=== PATIENT | male | born 1990 | race Caucasian/White ===

== ENCOUNTER 2017-05-22 13:17 | Emergency (ER) | payer OTHER ==
--- NOTE | 2017-05-22 13:24 | ED ---
ENT HPI - General Stated complaint: dental pain Time Seen by Provider: 05/22/17 13:18 Source: patient, RN notes reviewed Mode of arrival: ambulatory Limitations: no limitations - History of Present Illness Initial comments: 27-year-old male presents emergency Department chief complaint of dental pain. Patient states his tooth broke off a week or so ago. Patient states he is tired to go to [facility], dental clinic in [facility] and states that he does not have the money for it. Patient states that he's had increasing pain. Denies fevers or chills. He's had mild swelling. He should have some Orajel and other [id number] products with some relief. - Related Data Home Medications Medication Instructions Recorded Confirmed Hydrocodone/Acetaminophen [[place] 1 each PO Q6HR PRN 06/10/14 07/13/16 5-325] clonazePAM [KlonoPIN] 0.5 mg PO TID 06/10/14 07/13/16 Previous Rx's Medication Instructions Recorded HYDROcodone/APAP 5-325MG [[place] 1 tab PO Q6HR #12 tab 07/13/16 5-325] Acetaminophen-Codeine 300-30mg 1 tab PO Q4H PRN #20 tablet 05/22/17 [Tylenol #3] Ibuprofen [Motrin] 600 mg PO Q8HR PRN #30 tab 05/22/17 Penicillin V Potassium [Pen Vee K] 500 mg PO QID #40 tab 05/22/17 Allergies Allergy/AdvReac Type Severity Reaction Status Date / Time venom-honey bee Allergy Unknown Verified 07/13/16 13:25 [bee venom (honey bee)] Review of Systems ROS Statement: Those systems with pertinent positive or pertinent negative responses have been documented in the HPI. ROS Other: All systems not noted in ROS Statement are negative. Past Medical History Past Medical History: Asthma Additional Past Medical History / Comment(s): BACK PAIN History of Any Multi-Drug Resistant Organisms: None Reported Past Surgical History: Ear Surgery, Tonsillectomy Additional Past Surgical History / Comment(s): NASAL SURGERY Past Psychological History: ADD/ADHD, Bipolar, Schizoaffective Disorder, Schizophrenia Smoking Status: Current every day smoker Past Alcohol Use History: Occasional Past Drug Use History: None Reported General Exam General appearance: alert, in no apparent distress Head exam: Present: atraumatic, normocephalic, normal inspection Eye exam: Present: normal appearance, PERRL, EOMI. Absent: scleral icterus, conjunctival injection, periorbital swelling ENT exam: Present: mucous membranes moist, TM's normal bilaterally, normal external ear exam. Absent: normal oropharynx (Dental fracture noted #18) Neck exam: Present: normal inspection, full ROM. Absent: tenderness, meningismus, lymphadenopathy Respiratory exam: Present: normal lung sounds bilaterally. Absent: respiratory distress, wheezes, rales, rhonchi, stridor Cardiovascular Exam: Present: regular rate, normal rhythm, normal heart sounds. Absent: systolic murmur, diastolic murmur, rubs, gallop, clicks GI/Abdominal exam: Present: soft, normal bowel sounds. Absent: distended, tenderness, guarding, rebound, rigid Skin exam: Present: warm, dry, intact, normal color. Absent: rash Medical Decision Making - Medical Decision Making 27-year-old male presented for lower dental pain. Patient has a dental fracture. Patient still has his wasn't his and he is advised follow-up with oral surgeon, dentist. He states he has he was also advised to follow-up with [facility] dental clinic. Return parameters were discussed. Disposition Clinical Impression: Tooth fracture, Pain, dental Disposition: HOME SELF-CARE Condition: Stable Instructions: Toothache (ED) Additional Instructions: Please return to the Emergency Department if symptoms worsen or any other concerns. Prescriptions: Acetaminophen-Codeine 300-30mg [Tylenol #3] 1 tab PO Q4H PRN #20 tablet PRN Reason: pain Ibuprofen [Motrin] 600 mg PO Q8HR PRN #30 tab PRN Reason: Pain Penicillin V Potassium [Pen Vee K] 500 mg PO QID #40 tab Referrals: None,Stated [Primary Care Provider] - 1-2 days Time of Disposition: 13:23
[2017-05-22 13:25] VITALS: BP 125/62; PULSE 77; RESP 18; TEMP 98.2
== END 2017-05-22 13:37 | disposition home or self-care (01) ==
LOC: EC 13:17
DX: S02.5XXA Fracture of tooth (traumatic), initial encounter for closed fracture (principal); F17.200 Nicotine dependence, unspecified, uncomplicated; Z79.899 Other long term (current) drug therapy; Z91.030 Bee allergy status
CPT/HCPCS: 99282

== ENCOUNTER 2018-12-31 15:50 | Emergency (ER) | payer OTHER ==
[2018-12-31 15:57] VITALS: RESP 16
--- NOTE | 2018-12-31 16:57 | XR ---
EXAMINATION TYPE: XR chest 2V DATE OF EXAM: 12/31/2018 COMPARISON: 04/10/2009 HISTORY: Chest pain TECHNIQUE: Frontal and lateral views of the chest are obtained. FINDINGS: Heart and mediastinum are normal. Lungs are clear. Diaphragm is normal. Bony thorax is nor mal. IMPRESSION: Normal chest. No change.
--- NOTE | 2018-12-31 16:59 | XR ---
EXAMINATION TYPE: XR wrist complete RT DATE OF EXAM: 12/31/2018 COMPARISON: NONE HISTORY: Wrist pain TECHNIQUE: 4 views FINDINGS: I see no fracture nor dislocation. Joint spaces are fairly normal. There is rounded bony de nsity at the radial styloid process that could relate to an old injury. This could also be accessory ossicle. There is deformity of the fifth metacarpal related to old healed fracture. IMPRESSION: No acute abnormality of the right wrist.
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
[2018-12-31 17:28] VITALS: BP 130/74; PULSE 80; TEMP 98
== END 2018-12-31 17:27 | disposition other institution (70) ==
LOC: EC 15:50
DX: S09.90XA Unspecified injury of head, initial encounter (principal); S20.219A Contusion of unspecified front wall of thorax, initial encounter; S60.211A Contusion of right wrist, initial encounter; F17.200 Nicotine dependence, unspecified, uncomplicated; Z79.899 Other long term (current) drug therapy; Z91.030 Bee allergy status; V23.4XXA Motorcycle driver injured in collision with car, pick-up truck or van in traffic accident, initial encounter; Y92.410 Unspecified street and highway as the place of occurrence of the external cause
CPT/HCPCS: 70450; 71046; 72125; 99285

== ENCOUNTER 2019-06-28 13:52 | Emergency (ER) | payer BC, OTHER ==
[2019-06-28 14:00] VITALS: BP 134/83; PULSE 91; RESP 18; TEMP 98.2
[2019-06-28 14:39] LABS: Appearance,Urine Clear (Clear); Bilirubin,Urine Negative (Negative); Blood,Urine Negative (Negative); Color,Urine Yellow; Glucose,Urine (UA) Negative (Negative); Ketones,Urine Negative (Negative); Leukocyte Esterase,Urine Negative (Negative); Nitrite,Urine Negative (Negative); Protein,Urine Trace (Negative); Specific Gravity,Urine 1.027 (1.001-1.035); Urobilinogen,Urine <2.0 mg/dL (<2.0)
--- NOTE | 2019-06-28 14:39 | ED ---
Male Urogenital HPI - General Chief complaint: Urogenital Stated complaint: Male & abcess tooth Time Seen by Provider: 06/28/19 14:05 Source: patient, RN notes reviewed Mode of arrival: ambulatory Limitations: no limitations - History of Present Illness Initial comments: 29-year-old male presents emergency Department with chief complaint of possible herpes outbreak, dental abscess. Patient states he is impacted lower left wisdom tooth. Patient states is increasing pain last couple days. Concerned about possible infection. Patient also states that he woke up with a foul order from his general region. He states that there is no open lesions or sores. He states he was told that he had herpes and if he ever had any symptoms that he should be examined. Patient reports of fevers chills denies any dysuria or hematuria. - Related Data Home Medications Medication Instructions Recorded Confirmed Omeprazole 20 mg PO DAILY 12/31/18 12/31/18 Previous Rx's Medication Instructions Recorded Ibuprofen [Motrin] 600 mg PO Q8HR PRN #30 tab 06/28/19 Ketoconazole [Ketoconazole 2%] 1 applic TOPICAL BID #15 gm 06/28/19 Penicillin V Potassium [Pen Vee K] 500 mg PO QID #40 tablet 06/28/19 valACYclovir HCL [Valtrex] 1,000 mg PO DAILY #5 tab 06/28/19 Allergies Allergy/AdvReac Type Severity Reaction Status Date / Time venom-honey bee Allergy Unknown Verified 12/31/18 16:47 [bee venom (honey bee)] Review of Systems ROS Statement: Those systems with pertinent positive or pertinent negative responses have been documented in the HPI. ROS Other: All systems not noted in ROS Statement are negative. Past Medical History Past Medical History: Asthma Additional Past Medical History / Comment(s): BACK PAIN History of Any Multi-Drug Resistant Organisms: None Reported Past Surgical History: Ear Surgery, Tonsillectomy Additional Past Surgical History / Comment(s): NASAL SURGERY Past Psychological History: ADD/ADHD, Bipolar, Schizoaffective Disorder, Schizophrenia Smoking Status: Current every day smoker Past Alcohol Use History: Occasional Past Drug Use History: Prescription Drug Abuse General Exam Limitations: no limitations General appearance: alert, in no apparent distress Head exam: Present: atraumatic, normocephalic, normal inspection Eye exam: Present: normal appearance, PERRL, EOMI. Absent: scleral icterus, conjunctival injection, periorbital swelling ENT exam: Present: mucous membranes moist, TM's normal bilaterally. Absent: normal oropharynx (Poor dentition, impacted left lower molar) Neck exam: Present: normal inspection, full ROM. Absent: tenderness, meningismus, lymphadenopathy Respiratory exam: Present: normal lung sounds bilaterally. Absent: respiratory distress, wheezes, rales, rhonchi, stridor Cardiovascular Exam: Present: regular rate, normal rhythm, normal heart sounds. Absent: systolic murmur, diastolic murmur, rubs, gallop, clicks Neurological exam: Present: alert, oriented X3 Skin exam: Present: warm, dry, intact, normal color, rash (Right abdominal, groin erythematous rash with diffuse macular with deep Marcaine borders there are no vesicles or papules noted) Course Vital Signs 06/28/19 13:57 Temperature 98.2 F Pulse Rate 91 Respiratory 18 Rate Blood Pressure 134/83 O2 Sat by Pulse 97 Oximetry Medical Decision Making - Medical Decision Making Patient has tinea rash his groin. Patient will be treated with antifungals. Patient also has a dental abscess in which she started antibiotics. Patient was concerned about herpes outbreak he's had upper extremity past. Patient will be given antivirals but will only start if vesicles appear - Lab Data Lab Results 06/28/19 Range/Units 14:27 Urine Color Yellow Urine Appearance Clear (Clear) Urine pH 7.0 (5.0-8.0) Ur Specific [place] 1.027 (1.001-1.035) Urine Protein Trace H (Negative) Urine Glucose (UA) Negative (Negative) Urine Ketones Negative (Negative) Urine Blood Negative (Negative) Urine Nitrite Negative (Negative) Urine Bilirubin Negative (Negative) Urine Urobilinogen <2.0 (<2.0) mg/dL Ur Leukocyte Esterase Negative (Negative) Disposition Clinical Impression: Tinea, Herpes simplex, Dental infection Disposition: HOME SELF-CARE Condition: Stable Instructions (If sedation given, give patient instructions): Toothache (ED) Additional Instructions: Please return to the Emergency Department if symptoms worsen or any other concerns. Prescriptions: Ketoconazole [Ketoconazole 2%] 1 applic TOPICAL BID #15 gm Ibuprofen [Motrin] 600 mg PO Q8HR PRN #30 tab PRN Reason: Pain Penicillin V Potassium [Pen Vee K] 500 mg PO QID #40 tablet valACYclovir HCL [Valtrex] 1,000 mg PO DAILY #5 tab Is patient prescribed a controlled substance at d/c from ED?: No Referrals: None,Stated [Primary Care Provider] - 1-2 days Time of Disposition: 14:43
[2019-06-29 13:28] LABS: C. trachomatis,PCR Negative (Neg,Equiv); Chlamydia trachomatis Source Urine; N. gonorrhoeae,PCR Negative (Neg,Equiv); Neisseria Source Urine
== END 2019-06-28 15:00 | disposition home or self-care (01) ==
LOC: EC 13:52
DX: K04.7 Periapical abscess without sinus (principal); B00.9 Herpesviral infection, unspecified; B35.9 Dermatophytosis, unspecified; K01.1 Impacted teeth; F17.200 Nicotine dependence, unspecified, uncomplicated; Z91.030 Bee allergy status
CPT/HCPCS: 81003; 87491; 87591; 99283

== ENCOUNTER 2019-07-21 09:46 | Emergency (ER) | payer BC, OTHER ==
[2019-07-21 10:24] VITALS: BP 112/74; PULSE 97; TEMP 97.6
[2019-07-21 10:42] VITALS: RESP 16
--- NOTE | 2019-07-21 11:11 | XR ---
EXAMINATION TYPE: XR chest 2V DATE OF EXAM: 07/21/2019 COMPARISON: NONE TECHNIQUE: PA and lateral views submitted. HISTORY: Cough FINDINGS: The lungs are clear and there is no pneumothorax, pleural effusion, or focal pneumonia. IMPRESSION: 1. No acute process.
--- NOTE | 2019-07-21 11:18 | ED ---
URI HPI - General Chief Complaint: Upper Respiratory Infection Stated Complaint: Nausea, body aches Time Seen by Provider: 07/21/19 10:27 Source: patient, RN notes reviewed Mode of arrival: ambulatory Limitations: no limitations - History of Present Illness Initial Comments: 29-year-old male present emergency from chief complaint of cough congestion. P atient states symptoms have been going on for 3 days. No. Chills. Patient has chest and Robitussin no other [id number] topical medications. Patient does have underlying asthma no current inhaler. Denies any chest pain denies any vomiting states is at slight nausea. - Related Data Home Medications Medication Instructions Recorded Confirmed Omeprazole 20 mg PO DAILY 12/31/18 12/31/18 Previous Rx's Medication Instructions Recorded Ibuprofen [Motrin] 600 mg PO Q8HR PRN #30 tab 06/28/19 Ketoconazole [Ketoconazole 2%] 1 applic TOPICAL BID #15 gm 06/28/19 Penicillin V Potassium [Pen Vee K] 500 mg PO QID #40 tablet 06/28/19 valACYclovir HCL [Valtrex] 1,000 mg PO DAILY #5 tab 06/28/19 Pseudoephedrine 12Hr [Sudafed 12Hr] 120 mg PO Q12H #1 box 07/21/19 predniSONE 50 mg PO DAILY #5 tab 07/21/19 Allergies Allergy/AdvReac Type Severity Reaction Status Date / Time cholecalciferol (vitamin D3) Allergy Unknown Verified 07/21/19 10:25 [From Vitamin D3] venom-honey bee Allergy Unknown Verified 12/31/18 16:47 [bee venom (honey bee)] Review of Systems ROS Statement: Those systems with pertinent positive or pertinent negative responses have been documented in the HPI. ROS Other: All systems not noted in ROS Statement are negative. Past Medical History Past Medical History: Asthma Additional Past Medical History / Comment(s): BACK PAIN History of Any Multi-Drug Resistant Organisms: None Reported Past Surgical History: Ear Surgery, Tonsillectomy Additional Past Surgical History / Comment(s): NASAL SURGERY Past Psychological History: ADD/ADHD, Bipolar, Schizoaffective Disorder, Schizophrenia Smoking Status: Current every day smoker Past Alcohol Use History: Occasional Past Drug Use History: Prescription Drug Abuse General Exam Limitations: no limitations General appearance: alert, in no apparent distress Head exam: Present: atraumatic, normocephalic, normal inspection Eye exam: Present: normal appearance, PERRL, EOMI. Absent: scleral icterus, conjunctival injection, periorbital swelling ENT exam: Present: mucous membranes moist, TM's normal bilaterally, normal external ear exam. Absent: normal oropharynx (Postnasal drainage) Neck exam: Present: normal inspection, full ROM. Absent: tenderness, meningismus, lymphadenopathy Respiratory exam: Present: wheezes (Minimal). Absent: normal lung sounds bilaterally, respiratory distress, rales, rhonchi, stridor Cardiovascular Exam: Present: regular rate, normal rhythm, normal heart sounds. Absent: systolic murmur, diastolic murmur, rubs, gallop, clicks Course Vital Signs 07/21/19 07/21/19 10:22 10:40 Temperature 97.6 F Pulse Rate 97 Respiratory 18 16 Rate Blood Pressure 112/74 O2 Sat by Pulse 96 Oximetry Medical Decision Making - Medical Decision Making X-rays are negative for acute findings. Patient has a viral URI does have mild wheezing related to his asthma be given steroids. Return parameters were discussed. Disposition Clinical Impression: Acute upper respiratory infection, Asthma Disposition: HOME SELF-CARE Condition: Stable Instructions (If sedation given, give patient instructions): Upper Respiratory Infection (ED) Additional Instructions: Please return to the Emergency Department if symptoms worsen or any other concerns. Prescriptions: predniSONE 50 mg PO DAILY #5 tab Pseudoephedrine 12Hr [Sudafed 12Hr] 120 mg PO Q12H #1 box Is patient prescribed a controlled substance at d/c from ED?: No Referrals: None,Stated [Primary Care Provider] - 1-2 days Time of Disposition: 11:18
== END 2019-07-21 11:32 | disposition home or self-care (01) ==
LOC: EC 09:46
DX: J45.909 Unspecified asthma, uncomplicated (principal); J06.9 Acute upper respiratory infection, unspecified; F17.200 Nicotine dependence, unspecified, uncomplicated; Z91.030 Bee allergy status; Z88.8 Allergy status to other drugs, medicaments and biological substances
CPT/HCPCS: 71046; 99283

== ENCOUNTER 2019-10-10 23:41 | Emergency (ER) | payer BC, OTHER ==
[2019-10-11] MEDS ORDERED: ONDANSETRON 4 MG/2 ML VIAL IVP STA (00:31)
[2019-10-11] MEDS ORDERED: PANTOPRAZOLE 40 MG/10 ML VIAL IVP STA (00:31)
[2019-10-11] MEDS ORDERED: DICYCLOMINE 10 MG/ML 2 ML AMP IM STA (00:31)
[2019-10-11] MEDS ORDERED: SODIUM CHLORIDE 0.9% 2,000 ML IV STA (00:31)
[2019-10-11 00:53] LABS: Basophils # (A) 0.1 k/uL (0-0.2); Basophils % (A) 0 %; Eosinophils # (A) 0.4 k/uL (0-0.7); Eosinophils % (A) 3 %; Lymphocytes # (A) 3.6 k/uL (1.0-4.8); Lymphocytes % (A) 28 %; MCH 32.9 pg (25.0-35.0); MCHC 34.8 g/dL (31.0-37.0); MCV 94.5 fL (80.0-100.0); Mean Platelet Volume 7.5; Monocytes # (A) 0.7 k/uL (0-1.0); Monocytes % (A) 5 %; Neutrophils # (A) 7.9 k/uL (1.3-7.7); Neutrophils % (A) 62 %; Platelet Count 276 k/uL (150-450); RBC 4.87 m/uL (4.30-5.90); RDW 12.6 % (11.5-15.5); WBC 12.9 k/uL (3.8-10.6)
[2019-10-11 01:13] LABS: ALT 38 U/L (4-49); AST 36 U/L (17-59); African American GFR (CKD) >90 (>60 ml/min/1.73 sqM); Albumin 4.4 g/dL (3.5-5.0); Alkaline Phosphatase 65 U/L (38-126); Amylase 40 U/L (30-110); Anion Gap 10 mmol/L; Blood Urea Nitrogen 18 mg/dL (9-20); Calcium 9.1 mg/dL (8.4-10.2); Carbon Dioxide 21 mmol/L (22-30); Chloride 107 mmol/L (98-107); Glucose 94 mg/dL (74-99); Non-African American GFR(CKD) >90 (>60 ml/min/1.73 sqM); Sodium 138 mmol/L (137-145); Total Bilirubin 0.3 mg/dL (0.2-1.3); Total Protein 6.9 g/dL (6.3-8.2)
[2019-10-11] MEDS ORDERED: METOCLOPRAMIDE 5 MG/ML 2 ML VIAL IVP PRN (01:18)
[2019-10-11 01:36] LABS: Potassium 4.5 mmol/L (3.5-5.1)
[2019-10-11] MEDS ORDERED: ONDANSETRON 4 MG ODT STARTER PACK 2 TAB BTL PO STA (01:55)
--- NOTE | 2019-10-11 01:59 | ED ---
Nausea/Vomiting/Diarrhea HPI - General Chief complaint: Nausea/Vomiting/Diarrhea Stated complaint: NVD Time Seen by Provider: 10/11/19 00:11 Source: patient Mode of arrival: ambulatory - History of Present Illness Initial comments: Patient is 29-year-old male presenting to emergency Department with chief complaint of nausea vomiting diarrhea. States his symptoms began about one week ago but it gradually improved. Patient reports states about 4 days ago he ate food at work that was sitting in room temperature. Ears time. States she had developed nausea with multiple episodes of nonbilious, nonbloody vomiting. Patient also reports diarrhea since the incident. Does report occasional heartburn after vomiting episodes. States he also has some back pain near the left shoulder blade but states that is typical due to his occupation. Denies any night sweats or chills. Denies any chest pain, shortness of breath, lightheadedness or dizziness. Denies taking medication to alleviate the symptoms. Denies hematuria, hematochezia melena. Denies testicular pain or swelling. Denies any penile discharge or pain. - Related Data Home Medications Medication Instructions Recorded Confirmed Omeprazole 20 mg PO DAILY 12/31/18 12/31/18 Previous Rx's Medication Instructions Recorded Ibuprofen [Motrin] 600 mg PO Q8HR PRN #30 tab 06/28/19 Ketoconazole [Ketoconazole 2%] 1 applic TOPICAL BID #15 gm 06/28/19 Penicillin V Potassium [Pen Vee K] 500 mg PO QID #40 tablet 06/28/19 valACYclovir HCL [Valtrex] 1,000 mg PO DAILY #5 tab 06/28/19 Pseudoephedrine 12Hr [Sudafed 12Hr] 120 mg PO Q12H #1 box 07/21/19 predniSONE 50 mg PO DAILY #5 tab 07/21/19 Ondansetron Odt [Zofran Odt] 4 mg PO Q8HR PRN #20 tab 10/11/19 Allergies Allergy/AdvReac Type Severity Reaction Status Date / Time cholecalciferol (vitamin D3) Allergy Unknown Verified 10/11/19 00:05 [From Vitamin D3] venom-honey bee Allergy Unknown Verified 10/11/19 00:05 [bee venom (honey bee)] Review of Systems ROS Statement: Those systems with pertinent positive or pertinent negative responses have been documented in the HPI. ROS Other: All systems not noted in ROS Statement are negative. Past Medical History Past Medical History: Asthma Additional Past Medical History / Comment(s): BACK PAIN History of Any Multi-Drug Resistant Organisms: None Reported Past Surgical History: Ear Surgery, Tonsillectomy Additional Past Surgical History / Comment(s): NASAL SURGERY Past Psychological History: ADD/ADHD, Bipolar, Schizoaffective Disorder, Schizophrenia Smoking Status: Current every day smoker Past Alcohol Use History: Occasional Past Drug Use History: Prescription Drug Abuse General Exam Limitations: no limitations General appearance: alert, in no apparent distress Head exam: Present: atraumatic, normocephalic, normal inspection Eye exam: Present: normal appearance Pupils: Present: normal accommodation ENT exam: Present: normal exam Neck exam: Present: normal inspection, full ROM Respiratory exam: Present: normal lung sounds bilaterally Cardiovascular Exam: Present: regular rate, normal rhythm, normal heart sounds GI/Abdominal exam: Present: soft. Absent: distended, tenderness, guarding Extremities exam: Present: normal inspection, full ROM Back exam: Present: normal inspection, full ROM Neurological exam: Present: alert, oriented X3 Psychiatric exam: Present: normal affect, normal mood Skin exam: Present: warm, dry, intact, normal color Course Vital Signs 10/10/19 23:59 Temperature 98.6 F Pulse Rate 94 Respiratory 17 Rate Blood Pressure 126/81 O2 Sat by Pulse 95 Oximetry Medical Decision Making - Medical Decision Making Patient is 29-year-old male presenting to the emergency department with a chief complaint of nausea vomiting diarrhea. Symptoms have been on going for approximately 4 days. No night sweats fever or chills. No hematuria, hematochezia or melena. Nonbilious nonbloody vomiting. I suspect the patient has gastroenteritis. Patient was given Protonix, Bentyl, 2 L of IV fluids and Zofran. On reevaluation patient reports improvement in symptoms and feels comfortable going home. He'll be discharged with a Zofran. I suspect the patient has gastroenteritis. Patient was advised to follow the brat.Patient was advised to take prescribed medication as directed. Return parameters were thoroughly discussed the patient was understanding and agreeable. He was advised to follow primary care. Case discussed with physician. - Lab Data Result diagrams: 10/11/19 00:44 10/11/19 00:44 Lab Results 10/11/19 10/11/19 Range/Units 00:44 00:44 WBC 12.9 H (3.8-10.6) k/uL RBC 4.87 (4.30-5.90) m/uL Hgb 16.0 (13.0-17.5) gm/dL Hct 46.0 (39.0-53.0) % MCV 94.5 (80.0-100.0) fL MCH 32.9 (25.0-35.0) pg MCHC 34.8 (31.0-37.0) g/dL RDW 12.6 (11.5-15.5) % Plt Count 276 (150-450) k/uL Neutrophils % 62 % Lymphocytes % 28 % Monocytes % 5 % Eosinophils % 3 % Basophils % 0 % Neutrophils # 7.9 H (1.3-7.7) k/uL Lymphocytes # 3.6 (1.0-4.8) k/uL Monocytes # 0.7 (0-1.0) k/uL Eosinophils # 0.4 (0-0.7) k/uL Basophils # 0.1 (0-0.2) k/uL Sodium 138 (137-145) mmol/L Potassium 4.5 (3.5-5.1) mmol/L Chloride 107 (98-107) mmol/L Carbon Dioxide 21 L (22-30) mmol/L Anion Gap 10 mmol/L BUN 18 (9-20) mg/dL Creatinine 1.05 (0.66-1.25) mg/dL Est GFR (CKD-EPI)AfAm >90 (>60 ml/min/1.73 sqM) Est GFR (CKD-EPI)NonAf >90 (>60 ml/min/1.73 sqM) Glucose 94 (74-99) mg/dL Calcium 9.1 (8.4-10.2) mg/dL Total Bilirubin 0.3 (0.2-1.3) mg/dL AST 36 (17-59) U/L ALT 38 (4-49) U/L Alkaline Phosphatase 65 (38-126) U/L Total Protein 6.9 (6.3-8.2) g/dL Albumin 4.4 (3.5-5.0) g/dL Amylase 40 (30-110) U/L Lipase 136 (23-300) U/L Disposition Clinical Impression: Gastroenteritis, Nausea vomiting and diarrhea Disposition: HOME SELF-CARE Condition: Stable Instructions (If sedation given, give patient instructions): Gastroenteritis (DC) Additional Instructions: Take prescribed medication as directed. Follow with primary care. Return to emergency department if symptoms worsen. Follow a brat diet. Bananas, rice, applesauce and toast. Prescriptions: Ondansetron Odt [Zofran Odt] 4 mg PO Q8HR PRN #20 tab PRN Reason: Nausea Is patient prescribed a controlled substance at d/c from ED?: No Referrals: None,Stated [Primary Care Provider] - 1-2 days Time of Disposition: 01:59
[2019-10-11 02:18] VITALS: BP 129/72; PULSE 78; RESP 18; TEMP 98.5
== END 2019-10-11 02:17 | disposition home or self-care (01) ==
LOC: EC 23:41
DX: K52.9 Noninfective gastroenteritis and colitis, unspecified (principal); F17.200 Nicotine dependence, unspecified, uncomplicated; Z79.899 Other long term (current) drug therapy; Z88.8 Allergy status to other drugs, medicaments and biological substances; Z91.013 Allergy to seafood
CPT/HCPCS: 36415; 80053; 82150; 83690; 85025; 99284; 96374; 96375; 96361; J2405; S0119; C9113

== ENCOUNTER 2019-10-28 16:53 | Emergency (ER) | payer BC, OTHER ==
[2019-10-28 16:56] VITALS: BP 153/91; PULSE 94; RESP 16; TEMP 98.2
[2019-10-28] MEDS ORDERED: SODIUM CHLORIDE 0.9% 2,000 ML IV STA (17:04)
[2019-10-28] MEDS ORDERED: ONDANSETRON 4 MG/2 ML VIAL IVP STA (17:04)
[2019-10-28 17:45] LABS: Basophils % (A) 0 %; Eosinophils # (A) 0.3 k/uL (0-0.7); Eosinophils % (A) 2 %; HCT 44.4 % (39.0-53.0); Lymphocytes % (A) 27 %; MCHC 33.7 g/dL (31.0-37.0); Mean Platelet Volume 7.7; Monocytes # (A) 0.7 k/uL (0-1.0); Monocytes % (A) 7 %; Neutrophils # (A) 6.8 k/uL (1.3-7.7); Neutrophils % (A) 62 %; Platelet Count 291 k/uL (150-450); RBC 4.68 m/uL (4.30-5.90); RDW 12.8 % (11.5-15.5); WBC 10.9 k/uL (3.8-10.6)
[2019-10-28 17:51] LABS: ALT 57 U/L (4-49); AST 43 U/L (17-59); African American GFR (CKD) >90 (>60 ml/min/1.73 sqM); Albumin 4.3 g/dL (3.5-5.0); Alkaline Phosphatase 41 U/L (38-126); Amylase 38 U/L (30-110); Anion Gap 8 mmol/L; Blood Urea Nitrogen 15 mg/dL (9-20); Carbon Dioxide 23 mmol/L (22-30); Chloride 107 mmol/L (98-107); Glucose 80 mg/dL (74-99); Non-African American GFR(CKD) 86 (>60 ml/min/1.73 sqM); Sodium 138 mmol/L (137-145); Total Bilirubin 0.6 mg/dL (0.2-1.3); Total Protein 6.6 g/dL (6.3-8.2)
[2019-10-28 18:29] LABS: Appearance,Urine Clear (Clear); Bilirubin,Urine Negative (Negative); Blood,Urine Negative (Negative); Color,Urine Light Yellow; Glucose,Urine (UA) Negative (Negative); Ketones,Urine Negative (Negative); Leukocyte Esterase,Urine Negative (Negative); Nitrite,Urine Negative (Negative); Protein,Urine Negative (Negative); Specific Gravity,Urine 1.021 (1.001-1.035)
[2019-10-28 18:47] LABS: Amphetamine Screen,Urine Not Detected (NotDetected); Barbiturate Screen,Urine Not Detected (NotDetected); Benzodiazepines Screen,Urine Not Detected (NotDetected); Cocaine Screen,Urine Not Detected (NotDetected); Methadone Screen, Urine Not Detected (NotDetected); Opiate Screen,Urine Not Detected (NotDetected); Oxycodone Screen, Urine Not Detected (NotDetected); Phencyclidine Screen,Urine Not Detected (NotDetected); Tricyclic Antidepressant,Urine Not Detected (NotDetected); Urn Cannabinoid Scrn Not Detected (NotDetected)
--- NOTE | 2019-10-28 18:50 | ED ---
Nausea/Vomiting/Diarrhea HPI - General Chief complaint: Nausea/Vomiting/Diarrhea Stated complaint: Nausea/Diarrhea Time Seen by Provider: 10/28/19 17:04 Source: patient, RN notes reviewed Mode of arrival: ambulatory Limitations: no limitations - History of Present Illness Initial comments: 29-year-old male presents emergency Department chief complaint of ongoing diarrhea, nausea. Patient's had intermittent vomiting. Patient states diarrhea so bad that he soiled himself today because he cannot get the bathroom states he knows it's happening. He denies any current abdominal pain with states it's cramping. No fevers or chills No Chest Pain or Shortness Breath. Patient Has Not Follow-Up with PCP or GI. - Related Data Home Medications Medication Instructions Recorded Confirmed Omeprazole 20 mg PO DAILY 12/31/18 12/31/18 Previous Rx's Medication Instructions Recorded Ibuprofen [Motrin] 600 mg PO Q8HR PRN #30 tab 06/28/19 Ketoconazole [Ketoconazole 2%] 1 applic TOPICAL BID #15 gm 06/28/19 Penicillin V Potassium [Pen Vee K] 500 mg PO QID #40 tablet 06/28/19 valACYclovir HCL [Valtrex] 1,000 mg PO DAILY #5 tab 06/28/19 Pseudoephedrine 12Hr [Sudafed 12Hr] 120 mg PO Q12H #1 box 07/21/19 predniSONE 50 mg PO DAILY #5 tab 07/21/19 Ondansetron Odt [Zofran Odt] 4 mg PO Q8HR PRN #20 tab 10/11/19 Dicyclomine [Bentyl] 20 mg PO TID #30 tablet 10/28/19 Ondansetron Odt [Zofran Odt] 4 mg PO Q8HR PRN #14 tab 10/28/19 Allergies Allergy/AdvReac Type Severity Reaction Status Date / Time cholecalciferol (vitamin D3) Allergy Unknown Verified 10/28/19 16:54 [From Vitamin D3] venom-honey bee Allergy Unknown Verified 10/28/19 16:54 [bee venom (honey bee)] Review of Systems ROS Statement: Those systems with pertinent positive or pertinent negative responses have been documented in the HPI. ROS Other: All systems not noted in ROS Statement are negative. Past Medical History Past Medical History: Asthma Additional Past Medical History / Comment(s): BACK PAIN History of Any Multi-Drug Resistant Organisms: None Reported Past Surgical History: Ear Surgery, Tonsillectomy Additional Past Surgical History / Comment(s): NASAL SURGERY Past Psychological History: ADD/ADHD, Bipolar, Schizoaffective Disorder, Schizophrenia Smoking Status: Current every day smoker Past Alcohol Use History: Occasional Past Drug Use History: Prescription Drug Abuse General Exam Limitations: no limitations General appearance: alert, in no apparent distress Head exam: Present: atraumatic, normocephalic, normal inspection Eye exam: Present: normal appearance, PERRL, EOMI. Absent: scleral icterus, conjunctival injection, periorbital swelling ENT exam: Present: normal exam, normal oropharynx, mucous membranes moist Neck exam: Present: normal inspection, full ROM. Absent: tenderness, meningismus, lymphadenopathy Respiratory exam: Present: normal lung sounds bilaterally. Absent: respiratory distress, wheezes, rales, rhonchi, stridor Cardiovascular Exam: Present: regular rate, normal rhythm, normal heart sounds. Absent: systolic murmur, diastolic murmur, rubs, gallop, clicks GI/Abdominal exam: Present: soft, normal bowel sounds. Absent: distended, tenderness, guarding, rebound, rigid Course Vital Signs 10/28/19 16:54 Temperature 98.2 F Pulse Rate 94 Respiratory 16 Rate Blood Pressure 153/91 O2 Sat by Pulse 98 Oximetry Medical Decision Making - Medical Decision Making Patient's vitals are unremarkable. Patient requests to be tested for herpes was asymptomatic. Patient may have underlying IBS will follow-up with GI was started on enteral be given Zofran for his nausea. - Lab Data Result diagrams: 10/28/19 17:11 10/28/19 17:11 Lab Results 10/28/19 10/28/19 10/28/19 Range/Units 17:11 17:11 18:15 WBC 10.9 H (3.8-10.6) k/uL RBC 4.68 (4.30-5.90) m/uL Hgb 15.0 (13.0-17.5) gm/dL Hct 44.4 (39.0-53.0) % MCV 95.0 (80.0-100.0) fL MCH 32.0 (25.0-35.0) pg MCHC 33.7 (31.0-37.0) g/dL RDW 12.8 (11.5-15.5) % Plt Count 291 (150-450) k/uL Neutrophils % 62 % Lymphocytes % 27 % Monocytes % 7 % Eosinophils % 2 % Basophils % 0 % Neutrophils # 6.8 (1.3-7.7) k/uL Lymphocytes # 3.0 (1.0-4.8) k/uL Monocytes # 0.7 (0-1.0) k/uL Eosinophils # 0.3 (0-0.7) k/uL Basophils # 0.0 (0-0.2) k/uL Sodium 138 (137-145) mmol/L Potassium 5.0 (3.5-5.1) mmol/L Chloride 107 (98-107) mmol/L Carbon Dioxide 23 (22-30) mmol/L Anion Gap 8 mmol/L BUN 15 (9-20) mg/dL Creatinine 1.16 (0.66-1.25) mg/dL Est GFR (CKD-EPI)AfAm >90 (>60 ml/min/1.73 sqM) Est GFR (CKD-EPI)NonAf 86 (>60 ml/min/1.73 sqM) Glucose 80 (74-99) mg/dL Calcium 9.0 (8.4-10.2) mg/dL Total Bilirubin 0.6 (0.2-1.3) mg/dL AST 43 (17-59) U/L ALT 57 H (4-49) U/L Alkaline Phosphatase 41 (38-126) U/L Total Protein 6.6 (6.3-8.2) g/dL Albumin 4.3 (3.5-5.0) g/dL Amylase 38 (30-110) U/L Lipase 104 (23-300) U/L Urine Color Light Yellow Urine Appearance Clear (Clear) Urine pH 6.0 (5.0-8.0) Ur Specific [place] 1.021 (1.001-1.035) Urine Protein Negative (Negative) Urine Glucose (UA) Negative (Negative) Urine Ketones Negative (Negative) Urine Blood Negative (Negative) Urine Nitrite Negative (Negative) Urine Bilirubin Negative (Negative) Urine Urobilinogen 2.0 (<2.0) mg/dL Ur Leukocyte Esterase Negative (Negative) Urine Opiates Screen (NotDetected) Ur Oxycodone Screen (NotDetected) Urine Methadone Screen (NotDetected) Ur Propoxyphene Screen (NotDetected) Ur Barbiturates Screen (NotDetected) U Tricyclic Antidepress (NotDetected) Ur Phencyclidine Scrn (NotDetected) Ur Amphetamines Screen (NotDetected) U Methamphetamines Scrn (NotDetected) U Benzodiazepines Scrn (NotDetected) Urine Cocaine Screen (NotDetected) U Marijuana (THC) Screen (NotDetected) 10/28/19 Range/Units 18:15 WBC (3.8-10.6) k/uL RBC (4.30-5.90) m/uL Hgb (13.0-17.5) gm/dL Hct (39.0-53.0) % MCV (80.0-100.0) fL MCH (25.0-35.0) pg MCHC (31.0-37.0) g/dL RDW (11.5-15.5) % Plt Count (150-450) k/uL Neutrophils % % Lymphocytes % % Monocytes % % Eosinophils % % Basophils % % Neutrophils # (1.3-7.7) k/uL Lymphocytes # (1.0-4.8) k/uL Monocytes # (0-1.0) k/uL Eosinophils # (0-0.7) k/uL Basophils # (0-0.2) k/uL Sodium (137-145) mmol/L Potassium (3.5-5.1) mmol/L Chloride (98-107) mmol/L Carbon Dioxide (22-30) mmol/L Anion Gap mmol/L BUN (9-20) mg/dL Creatinine (0.66-1.25) mg/dL Est GFR (CKD-EPI)AfAm (>60 ml/min/1.73 sqM) Est GFR (CKD-EPI)NonAf (>60 ml/min/1.73 sqM) Glucose (74-99) mg/dL Calcium (8.4-10.2) mg/dL Total Bilirubin (0.2-1.3) mg/dL AST (17-59) U/L ALT (4-49) U/L Alkaline Phosphatase (38-126) U/L Total Protein (6.3-8.2) g/dL Albumin (3.5-5.0) g/dL Amylase (30-110) U/L Lipase (23-300) U/L Urine Color Urine Appearance (Clear) Urine pH (5.0-8.0) Ur Specific [place] (1.001-1.035) Urine Protein (Negative) Urine Glucose (UA) (Negative) Urine Ketones (Negative) Urine Blood (Negative) Urine Nitrite (Negative) Urine Bilirubin (Negative) Urine Urobilinogen (<2.0) mg/dL Ur Leukocyte Esterase (Negative) Urine Opiates Screen Not Detected (NotDetected) Ur Oxycodone Screen Not Detected (NotDetected) Urine Methadone Screen Not Detected (NotDetected) Ur Propoxyphene Screen Not Detected (NotDetected) Ur Barbiturates Screen Not Detected (NotDetected) U Tricyclic Antidepress Not Detected (NotDetected) Ur Phencyclidine Scrn Not Detected (NotDetected) Ur Amphetamines Screen Not Detected (NotDetected) U Methamphetamines Scrn Not Detected (NotDetected) U Benzodiazepines Scrn Not Detected (NotDetected) Urine Cocaine Screen Not Detected (NotDetected) U Marijuana (THC) Screen Not Detected (NotDetected) Disposition Clinical Impression: Nausea vomiting and diarrhea Disposition: HOME SELF-CARE Condition: Stable Instructions (If sedation given, give patient instructions): Acute Nausea and Vomiting (ED), Acute Diarrhea (ED) Additional Instructions: Please return to the Emergency Department if symptoms worsen or any other concerns. Prescriptions: Dicyclomine [Bentyl] 20 mg PO TID #30 tablet Ondansetron Odt [Zofran Odt] 4 mg PO Q8HR PRN #14 tab PRN Reason: Nausea Is patient prescribed a controlled substance at d/c from ED?: No Referrals: None,Stated [Primary Care Provider] - 1-2 days Conner Gloria MD [STAFF PHYSICIAN] - 1-2 days Time of Disposition: 18:50
[2019-10-28 23:45] LABS: HSV I IgG Interp POSITIVE (NEGATIVE); HSV II IgG Interp NEGATIVE (NEGATIVE)
== END 2019-10-28 19:01 | disposition home or self-care (01) ==
LOC: EC 16:53
DX: R19.7 Diarrhea, unspecified (principal); R11.2 Nausea with vomiting, unspecified; F17.200 Nicotine dependence, unspecified, uncomplicated; Z88.8 Allergy status to other drugs, medicaments and biological substances; Z91.030 Bee allergy status
CPT/HCPCS: 99284 ×2; 96374 ×2; 96361 ×3; 36415; 80053; 82150; 83690; 85025; 81003; 86695; 86696; 80306; J2405

== ENCOUNTER 2019-11-23 13:51 | Emergency (ER) | payer BC, OTHER ==
[2019-11-23 14:04] VITALS: RESP 18
[2019-11-23] MEDS ORDERED: SODIUM CHLORIDE 0.9% 1,000 ML IV STA (15:24)
--- NOTE | 2019-11-23 15:28 | XR ---
EXAMINATION TYPE: XR chest 1V DATE OF EXAM: 11/23/2019 COMPARISON: 07/21/2019 INDICATION: Cough TECHNIQUE: Single frontal view of the chest is obtained. FINDINGS: The heart size is normal. The pulmonary vasculature is normal. The lungs are clear. IMPRESSION: 1. No acute pulmonary process.
[2019-11-23 15:47] LABS: Basophils # (A) 0.1 k/uL (0-0.2); Basophils % (A) 1 %; Eosinophils # (A) 0.3 k/uL (0-0.7); Eosinophils % (A) 3 %; HCT 46.2 % (39.0-53.0); HGB 15.5 gm/dL (13.0-17.5); Lymphocytes # (A) 2.7 k/uL (1.0-4.8); Lymphocytes % (A) 27 %; MCH 31.8 pg (25.0-35.0); MCHC 33.6 g/dL (31.0-37.0); MCV 94.7 fL (80.0-100.0); Mean Platelet Volume 7.7; Monocytes # (A) 0.6 k/uL (0-1.0); Monocytes % (A) 6 %; Neutrophils # (A) 6.3 k/uL (1.3-7.7); Neutrophils % (A) 62 %; Platelet Count 251 k/uL (150-450); RBC 4.88 m/uL (4.30-5.90); RDW 12.3 % (11.5-15.5); WBC 10.1 k/uL (3.8-10.6)
[2019-11-23 15:57] LABS: ALT 41 U/L (4-49); AST 30 U/L (17-59); African American GFR (CKD) >90 (>60 ml/min/1.73 sqM); Albumin 3.8 g/dL (3.5-5.0); Alkaline Phosphatase 52 U/L (38-126); Anion Gap 7 mmol/L; Blood Urea Nitrogen 14 mg/dL (9-20); Calcium 8.4 mg/dL (8.4-10.2); Carbon Dioxide 22 mmol/L (22-30); Chloride 109 mmol/L (98-107); Glucose 109 mg/dL (74-99); Non-African American GFR(CKD) >90 (>60 ml/min/1.73 sqM); Potassium 4.1 mmol/L (3.5-5.1); Sodium 138 mmol/L (137-145); Total Bilirubin 0.4 mg/dL (0.2-1.3)
[2019-11-23 16:06] LABS: Appearance,Urine Clear (Clear); Bilirubin,Urine Negative (Negative); Blood,Urine Negative (Negative); Color,Urine Yellow; Glucose,Urine (UA) Negative (Negative); Ketones,Urine Negative (Negative); Leukocyte Esterase,Urine Negative (Negative); Nitrite,Urine Negative (Negative); PH, Urine 7.5 (5.0-8.0); Protein,Urine Trace (Negative); Specific Gravity,Urine 1.031 (1.001-1.035)
--- NOTE | 2019-11-23 16:08 | XR ---
EXAMINATION TYPE: XR KUB DATE OF EXAM: 11/23/2019 COMPARISON: None INDICATION: Diarrhea abdominal nausea vomiting diarrhea TECHNIQUE: Single view abdomen supine view FINDINGS: There is a normal bowel gas pattern. Psoas margins are normal. No organomegaly is present. IMPRESSION: 1. Unremarkable Abdomen
[2019-11-23] MEDS ORDERED: CALCIUM CARBONATE 500 MG CHEWABLE PO STA (17:02)
--- NOTE | 2019-11-23 17:09 | ED ---
General Adult HPI - General Chief complaint: Nausea/Vomiting/Diarrhea Stated complaint: Covid Test Time Seen by Provider: 11/23/19 14:06 Source: patient, RN notes reviewed, old records reviewed Mode of arrival: ambulatory Limitations: no limitations - History of Present Illness Initial comments: 29-year-old male patient past history significant for asthma presents to ED for chief complaint of cough, nausea vomiting diarrhea. Patient pours these been experiencing nausea vomiting diarrhea for the past month. Patient reports that in the morning he coughs and feels mild short of breath. Denies any at this time. Patient also reports he had some mild waxing and waning lower quadrant abdominal pain. Patient was seen for relatively similar symptoms 3 weeks ago. Denies any other complaints. Systemic: Pt denies fatigue, fever/chills, rash. Pt denies weakness, night sweats, weight loss. Neuro: Pt denies headache, visual disturbances, syncope or pre-syncope. HEENT: Pt denies ocular discharge or irritation, otalgia, rhinorrhea, pharyngitis or notable lymphadenopathy. Cardiopulmonary: Pt denies chest pain, heart palpitations, dyspnea on exertion. : Pt denies dysuria, burning w/ urination, frequency/urgency. Denies new onset urinary or bowel incontinence. MSK: Pt denies myalgia, loss of strength or function in extremities. Neuro: Pt denies new onset weakness, paresthesias. - Related Data Home Medications Medication Instructions Recorded Confirmed Omeprazole 20 mg PO DAILY 12/31/18 12/31/18 Previous Rx's Medication Instructions Recorded Ibuprofen [Motrin] 600 mg PO Q8HR PRN #30 tab 06/28/19 Ketoconazole [Ketoconazole 2%] 1 applic TOPICAL BID #15 gm 06/28/19 Penicillin V Potassium [Pen Vee K] 500 mg PO QID #40 tablet 06/28/19 valACYclovir HCL [Valtrex] 1,000 mg PO DAILY #5 tab 06/28/19 Pseudoephedrine 12Hr [Sudafed 12Hr] 120 mg PO Q12H #1 box 07/21/19 predniSONE 50 mg PO DAILY #5 tab 07/21/19 Ondansetron Odt [Zofran Odt] 4 mg PO Q8HR PRN #20 tab 10/11/19 Dicyclomine [Bentyl] 20 mg PO TID #30 tablet 10/28/19 Ondansetron Odt [Zofran Odt] 4 mg PO Q8HR PRN #14 tab 10/28/19 Albuterol Inhaler [Ventolin Hfa 2 puff INHALATION QID PRN #1 11/23/19 Inhaler] inhaler Allergies Allergy/AdvReac Type Severity Reaction Status Date / Time cholecalciferol (vitamin D3) Allergy Unknown Verified 11/23/19 13:57 [From Vitamin D3] venom-honey bee Allergy Unknown Verified 11/23/19 13:57 [bee venom (honey bee)] Review of Systems ROS Statement: Those systems with pertinent positive or pertinent negative responses have been documented in the HPI. ROS Other: All systems not noted in ROS Statement are negative. Past Medical History Past Medical History: Asthma Additional Past Medical History / Comment(s): BACK PAIN History of Any Multi-Drug Resistant Organisms: None Reported Past Surgical History: Ear Surgery, Tonsillectomy Additional Past Surgical History / Comment(s): NASAL SURGERY Past Psychological History: ADD/ADHD, Bipolar, Schizoaffective Disorder, Schizophrenia Smoking Status: Current every day smoker Past Alcohol Use History: Occasional Past Drug Use History: None Reported, Prescription Drug Abuse General Exam - General Exam Comments Initial Comments: Constitutional: NAD, AOX3, Pt has pleasant affect. HEENT: NC/AT, trachea midline, neck supple, no lymphadenopathy. Posterior pharynx non erythematous, without exudates. External ears appear normal, without discharge. Mucous membranes moist. Eyes PERRLA, EOM intact. There is no scleral icterus. No pallor noted. Cardiopulmonary: RRR, no murmurs, rubs or gallops, no JVD noted. Lungs CTAB in anterior and posterior mares. No peripheral edema. Abdominal exam: Abdomen soft and non-distended. Abdomen mildly tender to palpat ion lower quadrant regions. No guarding no rigidity. No ecchymosis. Bowel sounds active in LLQ. No hepatosplenomegaly. Neuro: CN II-XII grossly intact. No nuchal rigidity. No raccon eyes, no valverde sign, no hemotympanum. No cervical spinal tenderness. MSK: No posterior calf tenderness bilaterally, homans sign negative bilaterally. Posterior tibialis and radial pulse +2 bilaterally. Sensation intact in upper and lower extremities. Full active ROM in upper and lower extremities, 5/5 stregnth. Limitations: no limitations Course Vital Signs 11/23/19 13:57 Temperature 97.9 F Pulse Rate 92 Respiratory 18 Rate Blood Pressure 131/74 O2 Sat by Pulse 97 Oximetry Medical Decision Making - Medical Decision Making 29-year-old male patient past history significant for asthma presents to ED for chief complaint of cough, nausea vomiting diarrhea. Patient pours these been experiencing nausea vomiting diarrhea for the past month. Patient reports that in the morning he coughs and feels mild short of breath. Denies any at this time. Patient also reports he had some mild waxing and waning lower quadrant abdominal pain. Patient was seen for relatively similar symptoms 3 weeks ago. Denies any other complaints. Patient will signs are stable, afebrile. Physical exam displayed very mild lower quadrant tenderness. Laboratory investigations were obtained and are nonimmpressive. Chest x-ray KUB did not display acute p rocess. Patient did not follow up with GI after last ER visit. On repeat evaluation patient reports that he is now having very mild suprapubic discomfort. Discussed advanced imaging and offered CT, patient was comfortable with discharge, primary care GI follow-up and strict return precautions. P atient does report that he may have had a covid Exposure at work. Repeat evaluation patient also complained of some heartburn she states is baseline for him. Patient administered tums and will take at home. Albuterol inhaler refilled. Will be discharged and return to ED if condition worsens. Will be advised to self quarantine. Case discussed with Dr. Anne. - Lab Data Result diagrams: 11/23/19 15:30 11/23/19 15:30 Lab Results 11/23/19 11/23/19 11/23/19 Range/Units 15:30 15:30 15:30 WBC 10.1 (3.8-10.6) k/uL RBC 4.88 (4.30-5.90) m/uL Hgb 15.5 (13.0-17.5) gm/dL Hct 46.2 (39.0-53.0) % MCV 94.7 (80.0-100.0) fL MCH 31.8 (25.0-35.0) pg MCHC 33.6 (31.0-37.0) g/dL RDW 12.3 (11.5-15.5) % Plt Count 251 (150-450) k/uL Neutrophils % 62 % Lymphocytes % 27 % Monocytes % 6 % Eosinophils % 3 % Basophils % 1 % Neutrophils # 6.3 (1.3-7.7) k/uL Lymphocytes # 2.7 (1.0-4.8) k/uL Monocytes # 0.6 (0-1.0) k/uL Eosinophils # 0.3 (0-0.7) k/uL Basophils # 0.1 (0-0.2) k/uL Sodium 138 (137-145) mmol/L Potassium 4.1 (3.5-5.1) mmol/L Chloride 109 H (98-107) mmol/L Carbon Dioxide 22 (22-30) mmol/L Anion Gap 7 mmol/L BUN 14 (9-20) mg/dL Creatinine 0.86 (0.66-1.25) mg/dL Est GFR (CKD-EPI)AfAm >90 (>60 ml/min/1.73 sqM) Est GFR (CKD-EPI)NonAf >90 (>60 ml/min/1.73 sqM) Glucose 109 H (74-99) mg/dL Plasma Lactic Acid Raji 1.0 (0.7-2.0) mmol/L Calcium 8.4 (8.4-10.2) mg/dL Total Bilirubin 0.4 (0.2-1.3) mg/dL AST 30 (17-59) U/L ALT 41 (4-49) U/L Alkaline Phosphatase 52 (38-126) U/L Total Protein 6.0 L (6.3-8.2) g/dL Albumin 3.8 (3.5-5.0) g/dL Lipase 80 (23-300) U/L Urine Color Urine Appearance (Clear) Urine pH (5.0-8.0) Ur Specific [place] (1.001-1.035) Urine Protein (Negative) Urine Glucose (UA) (Negative) Urine Ketones (Negative) Urine Blood (Negative) Urine Nitrite (Negative) Urine Bilirubin (Negative) Urine Urobilinogen (<2.0) mg/dL Ur Leukocyte Esterase (Negative) 11/23/19 Range/Units 15:30 WBC (3.8-10.6) k/uL RBC (4.30-5.90) m/uL Hgb (13.0-17.5) gm/dL Hct (39.0-53.0) % MCV (80.0-100.0) fL MCH (25.0-35.0) pg MCHC (31.0-37.0) g/dL RDW (11.5-15.5) % Plt Count (150-450) k/uL Neutrophils % % Lymphocytes % % Monocytes % % Eosinophils % % Basophils % % Neutrophils # (1.3-7.7) k/uL Lymphocytes # (1.0-4.8) k/uL Monocytes # (0-1.0) k/uL Eosinophils # (0-0.7) k/uL Basophils # (0-0.2) k/uL Sodium (137-145) mmol/L Potassium (3.5-5.1) mmol/L Chloride (98-107) mmol/L Carbon Dioxide (22-30) mmol/L Anion Gap mmol/L BUN (9-20) mg/dL Creatinine (0.66-1.25) mg/dL Est GFR (CKD-EPI)AfAm (>60 ml/min/1.73 sqM) Est GFR (CKD-EPI)NonAf (>60 ml/min/1.73 sqM) Glucose (74-99) mg/dL Plasma Lactic Acid Raji (0.7-2.0) mmol/L Calcium (8.4-10.2) mg/dL Total Bilirubin (0.2-1.3) mg/dL AST (17-59) U/L ALT (4-49) U/L Alkaline Phosphatase (38-126) U/L Total Protein (6.3-8.2) g/dL Albumin (3.5-5.0) g/dL Lipase (23-300) U/L Urine Color Yellow Urine Appearance Clear (Clear) Urine pH 7.5 (5.0-8.0) Ur Specific [place] 1.031 (1.001-1.035) Urine Protein Trace H (Negative) Urine Glucose (UA) Negative (Negative) Urine Ketones Negative (Negative) Urine Blood Negative (Negative) Urine Nitrite Negative (Negative) Urine Bilirubin Negative (Negative) Urine Urobilinogen 2.0 (<2.0) mg/dL Ur Leukocyte Esterase Negative (Negative) Disposition Clinical Impression: Nausea vomiting and diarrhea, Abdominal pain, Cough Disposition: HOME SELF-CARE Condition: Stable Instructions (If sedation given, give patient instructions): Asthma (ED), Acute Nausea and Vomiting (ED), Acute Diarrhea (ED), Abdominal Pain (ED) Additional Instructions: Follow-up with primary care provider tomorrow. Follow-up with GI consult tomorrow. Use inhaler as needed. Return to ER if condition worsens in any way. Self quarantine next 2 weeks. Prescriptions: Albuterol Inhaler [Ventolin Hfa Inhaler] 2 puff INHALATION QID PRN #1 inhaler PRN Reason: Wheezing Is patient prescribed a controlled substance at d/c from ED?: No Referrals: None,Stated [Primary Care Provider] - 1-2 days Conner Gloria MD [STAFF PHYSICIAN] - 1-2 days
[2019-11-23 17:26] VITALS: BP 130/78; PULSE 87; TEMP 98.3
== END 2019-11-23 17:26 | disposition home or self-care (01) ==
LOC: EC 13:51
DX: R11.2 Nausea with vomiting, unspecified (principal); R19.7 Diarrhea, unspecified; R05 Cough; R10.30 Lower abdominal pain, unspecified; R06.02 Shortness of breath; Z20.828 Contact with and (suspected) exposure to other viral communicable diseases; F17.200 Nicotine dependence, unspecified, uncomplicated; Z79.899 Other long term (current) drug therapy; Z88.8 Allergy status to other drugs, medicaments and biological substances; Z91.030 Bee allergy status
CPT/HCPCS: 36415; 71045; 74018; 80053; 81003; 83605; 83690; 85025; 96360; 96361; 99284

== ENCOUNTER 2019-12-21 12:48 | Emergency (ER) | payer BC, OTHER ==
[2019-12-21 12:57] VITALS: BP 124/56; PULSE 85; RESP 18; TEMP 98
--- NOTE | 2019-12-21 13:45 | ED ---
Recheck HPI - General Chief Complaint: Recheck/Abnormal Lab/Rx Stated Complaint: STD testing Time Seen by Provider: 12/21/19 13:05 Source: patient Mode of arrival: ambulatory Limitations: no limitations - History of Present Illness Initial Comments: 29-year-old male patient presents to the emergency department today requesting blood testing for herpes. Patient states he was told by one physician opacity has herpes and was told by another one that he didn't have it. Patient states he wants to know for sure. He denies any current wounds or sores. Denies any discharge from his urethra. Denies any redness or swelling to the penis her chest across. Denies fever or chills. Patient would also like to be tested for coronavirus. States he has been coughing for the last 2-1/2 months. States he does have sputum production. States he feels short of breath especially with activity. There is also have a history of asthma and is out of his inhalers. States he has had diarrhea for the last couple of weeks as well. Patient denies any recent rash, chest pain, abdominal pain, back pain, numbness, tingling, dizziness, weakness, headache, visual changes, or any other complaints. - Related Data Home Medications Medication Instructions Recorded Confirmed Omeprazole 20 mg PO DAILY 12/31/18 12/31/18 Previous Rx's Medication Instructions Recorded Ibuprofen [Motrin] 600 mg PO Q8HR PRN #30 tab 06/28/19 Ketoconazole [Ketoconazole 2%] 1 applic TOPICAL BID #15 gm 06/28/19 Penicillin V Potassium [Pen Vee K] 500 mg PO QID #40 tablet 06/28/19 valACYclovir HCL [Valtrex] 1,000 mg PO DAILY #5 tab 06/28/19 Pseudoephedrine 12Hr [Sudafed 12Hr] 120 mg PO Q12H #1 box 07/21/19 predniSONE 50 mg PO DAILY #5 tab 07/21/19 Ondansetron Odt [Zofran Odt] 4 mg PO Q8HR PRN #20 tab 10/11/19 Dicyclomine [Bentyl] 20 mg PO TID #30 tablet 10/28/19 Ondansetron Odt [Zofran Odt] 4 mg PO Q8HR PRN #14 tab 10/28/19 Albuterol Inhaler [Ventolin Hfa 2 puff INHALATION QID PRN #1 11/23/19 Inhaler] inhaler Albuterol Sulfate [Proair Hfa] 1 - 2 puff INHALATION Q6HR PRN #1 12/21/19 inhaler Loratadine [Claritin] 10 mg PO DAILY #30 tablet 12/21/19 Allergies Allergy/AdvReac Type Severity Reaction Status Date / Time cholecalciferol (vitamin D3) Allergy Unknown Verified 12/21/19 12:57 [From Vitamin D3] venom-honey bee Allergy Unknown Verified 12/21/19 12:57 [bee venom (honey bee)] Review of Systems ROS Statement: Those systems with pertinent positive or pertinent negative responses have been documented in the HPI. ROS Other: All systems not noted in ROS Statement are negative. Past Medical History Past Medical History: Asthma Additional Past Medical History / Comment(s): BACK PAIN History of Any Multi-Drug Resistant Organisms: None Reported Past Surgical History: Ear Surgery, Tonsillectomy Additional Past Surgical History / Comment(s): NASAL SURGERY Past Psychological History: ADD/ADHD, Bipolar, Depression, Schizoaffective Disorder, Schizophrenia Smoking Status: Current every day smoker Past Alcohol Use History: Occasional Past Drug Use History: None Reported, Prescription Drug Abuse General Exam Limitations: no limitations General appearance: alert, in no apparent distress, other (Physical well- developed, well-nourished adult male patient in no acute distress. Vital signs upon presentation are temperature 98.0F, pulse 85, respirations 18, blood pressure 09/09/1954, pulse ox 95% on room air.) ENT exam: Present: normal exam, normal oropharynx, mucous membranes moist Respiratory exam: Present: normal lung sounds bilaterally. Absent: respiratory distress, wheezes, rales, rhonchi, stridor Cardiovascular Exam: Present: regular rate, normal rhythm, normal heart sounds. Absent: systolic murmur, diastolic murmur, rubs, gallop, clicks GI/Abdominal exam: Present: soft, normal bowel sounds. Absent: distended, tenderness, guarding, rebound, rigid Neurological exam: Present: alert, oriented X3, CN II-XII intact Psychiatric exam: Present: normal affect, normal mood Skin exam: Present: warm, dry, intact, normal color. Absent: rash Course Vital Signs 12/21/19 12:53 Temperature 98.0 F Pulse Rate 85 Respiratory 18 Rate Blood Pressure 124/56 O2 Sat by Pulse 95 Oximetry Medical Decision Making - Medical Decision Making 21-year-old male patient presented to the emergency department today wanting to be tested for herpes. Patient has no current wounds or breakouts. States he did receive a positive result the past and is waiting for his October result would never got called. He is also reporting cough and shortness of breath for the l ast 2-1/2 months. States that having diarrhea for the last 3 weeks. He is requesting coronavirus testing. Physical examination was clear equal lung sounds. Abdomen is soft and nontender. He is afebrile, vitals. Coronavirus testing was negative. Chest x-ray shows no acute cardio pulmonary process. He does have a history of asthma stool given a prescription for Claritin and Pro Air inhaler. He is instructed to follow-up with his primary care physician for recheck in 1-2 days. Return parameters discussed in detail. He verbalizes understanding and agrees with this plan. - Lab Data Lab Results 12/21/19 Range/Units 13:44 Coronavirus (PCR) Not Detected (Not Detectd) - Radiology Data Radiology results: report reviewed, image reviewed Two-view x-ray of the chest is obtained. Report was reviewed in its entirety. Impression by Dr. Holder shows no acute cardio primary process. No significant change from prior study. Disposition Clinical Impression: Asthma, Shortness of breath Disposition: HOME SELF-CARE Condition: Good Instructions (If sedation given, give patient instructions): Asthma (ED), Shortness of Breath (ED) Additional Instructions: Take medications as directed. You tested negative for COVID-19, it is unlikely your symptoms are contagious. Follow-up with your primary care physician for recheck in 1-2 days. Return to the emergency department immediately for any new, worsening, or concerning symptoms. Prescriptions: Loratadine [Claritin] 10 mg PO DAILY #30 tablet Albuterol Sulfate [Proair Hfa] 1 - 2 puff INHALATION Q6HR PRN #1 inhaler PRN Reason: Shortness Of Breath Is patient prescribed a controlled substance at d/c from ED?: No Referrals: José Manuel Cornejo [STAFF PHYSICIAN] - 1-2 days Time of Disposition: 14:30
--- NOTE | 2019-12-21 13:50 | XR ---
EXAMINATION TYPE: XR chest 2V DATE OF EXAM: 12/21/2019 COMPARISON: Chest x-ray November 23, 2019. HISTORY: History of asthma with shortness of breath. TECHNIQUE: Frontal and lateral views of the chest are obtained. FINDINGS: There is no focal air space opacity, pleural effusion, or pneumothorax seen. The cardiac silhouette size is within normal limits. The osseous structures are intact. IMPRESSION: No acute cardiopulmonary process. No significant change from prior study.
== END 2019-12-21 14:41 | disposition home or self-care (01) ==
LOC: EC 12:48
DX: Z03.818 Encounter for observation for suspected exposure to other biological agents ruled out (principal); J45.909 Unspecified asthma, uncomplicated; R19.7 Diarrhea, unspecified; Z91.030 Bee allergy status; Z88.8 Allergy status to other drugs, medicaments and biological substances; F17.200 Nicotine dependence, unspecified, uncomplicated
CPT/HCPCS: 71046; 87635; 99283

== ENCOUNTER 2020-05-14 18:31 | Emergency (ER) | payer OTHER ==
[2020-05-14 18:37] VITALS: RESP 18
[2020-05-14] MEDS ORDERED: SODIUM CHLORIDE 0.9% 1,000 ML IV STA (20:29)
[2020-05-14] MEDS ORDERED: KETOROLAC 15 MG/ML 1 ML VIAL IVP STA (20:30)
--- NOTE | 2020-05-14 20:55 | ED ---
General Adult HPI - General Chief complaint: Abdominal Pain Stated complaint: IBS problems Time Seen by Provider: 05/14/20 19:55 Source: patient, RN notes reviewed, old records reviewed Mode of arrival: ambulatory Limitations: no limitations - History of Present Illness Initial comments: 30-year-old male patient history IBS presents to ED for evaluation approximately 3 days of left lower quadrant abdominal pain some nausea vomiting and diarrhea. Denies any fevers. Denies any other acute complaints. Systemic: Pt denies fatigue, fever/chills, rash. Pt denies weakness, night sweats, weight loss. Neuro: Pt denies headache, visual disturbances, syncope or pre-syncope. HEENT: Pt denies ocular discharge or irritation, otalgia, rhinorrhea, pharyngitis or notable lymphadenopathy. Cardiopulmonary: Pt denies chest pain, SOB, heart palpitations, dyspnea on exertion. : Pt denies dysuria, burning w/ urination, frequency/urgency. Denies new onset urinary or bowel incontinence. MSK: Pt denies myalgia, loss of strength or function in extremities. Neuro: Pt denies new onset weakness, paresthesias. - Related Data Home Medications Medication Instructions Recorded Confirmed Albuterol Sulfate [Proair Hfa] 1 - 2 puff INHALATION RT-Q6H PRN 05/14/20 05/14/20 Ammonium Lactate Lotion 1 applic TOPICAL BID PRN 05/14/20 05/14/20 [Lac-Hydrin 12% Lotion] Fluticasone Nasal [place] [Flonase 1 spr EA NOSTRIL DAILY PRN 05/14/20 05/14/20 Nasal [place]] Fluticasone Propion/Salmeterol 1 puff INHALATION RT-DAILY 05/14/20 05/14/20 [Wixela 250-50 Inhub] Ketoconazole [Ketoconazole 2%] 1 applic TOPICAL BID PRN 05/14/20 05/14/20 Nicotine 21Mg/24Hr Patch [Habitrol] 1 patch TRANSDERM DAILY 05/14/20 05/14/20 Omeprazole 40 mg PO DAILY 05/14/20 05/14/20 Allergies Allergy/AdvReac Type Severity Reaction Status Date / Time cholecalciferol (vitamin D3) Allergy Unknown Verified 05/14/20 22:34 [From Vitamin D3] venom-honey bee Allergy Unknown Verified 05/14/20 22:34 [bee venom (honey bee)] Review of Systems ROS Statement: Those systems with pertinent positive or pertinent negative responses have been documented in the HPI. ROS Other: All systems not noted in ROS Statement are negative. Past Medical History Past Medical History: Asthma Additional Past Medical History / Comment(s): BACK PAIN,IBS History of Any Multi-Drug Resistant Organisms: None Reported Past Surgical History: Ear Surgery, Tonsillectomy Additional Past Surgical History / Comment(s): NASAL SURGERY Past Psychological History: ADD/ADHD, Bipolar, Depression, Schizoaffective Disorder, Schizophrenia Past Alcohol Use History: Occasional Past Drug Use History: None Reported, Prescription Drug Abuse General Exam - General Exam Comments Initial Comments: Constitutional: NAD, AOX3, Pt has pleasant affect. HEENT: NC/AT, trachea midline, neck supple, no lymphadenopathy. External ears appear normal, without discharge. Mucous membranes moist. Eyes PERRLA, EOM intact. There is no scleral icterus. No pallor noted. Cardiopulmonary: RRR, no murmurs, rubs or gallops, no JVD noted. Lungs CTAB in a nterior and posterior mares. No peripheral edema. Abdominal exam: Abdomen soft and non-distended. Abdomen mildly tender to palpation left lower quadrant region. Bowel sounds active in LLQ. No hepato splenomegaly. No ecchymosis Neuro: CN II-XII grossly intact. No nuchal rigidity. No raccon eyes, no valverde sign, no hemotympanum. No cervical spinal tenderness. MSK: Distal pulses intact and equal. Full active ROM in upper and lower extremities, 5/5 stregnth. Limitations: no limitations Course Vital Signs 05/14/20 05/14/20 18:34 20:55 Temperature 98.1 F 97.7 F Pulse Rate 113 H 58 L Respiratory 18 18 Rate Blood Pressure 122/73 113/69 O2 Sat by Pulse 98 99 Oximetry Medical Decision Making - Medical Decision Making 30-year-old male patient ED for abdominal pain. Left lower quadrant. Laboratory investigations unremarkable. CT abdomen and pelvis negative for acute process. Patient pain has resolved entirely. With Toradol. I discharge the patient primary care follow-up and return precautions. Case discussed with Dr. Hunter. - Lab Data Result diagrams: 05/14/20 20:53 05/14/20 20:53 Lab Results 05/14/20 05/14/2020 Range/Units 20:53 20:53 20:53 WBC 11.3 H (3.8-10.6) k/uL RBC 5.05 (4.30-5.90) m/uL Hgb 15.5 (13.0-17.5) gm/dL Hct 47.1 (39.0-53.0) % MCV 93.3 (80.0-100.0) fL MCH 30.8 (25.0-35.0) pg MCHC 33.0 (31.0-37.0) g/dL RDW 12.5 (11.5-15.5) % Plt Count 297 (150-450) k/uL Neutrophils % 59 % Lymphocytes % 32 % Monocytes % 5 % Eosinophils % 3 % Basophils % 1 % Neutrophils # 6.7 (1.3-7.7) k/uL Lymphocytes # 3.6 (1.0-4.8) k/uL Monocytes # 0.6 (0-1.0) k/uL Eosinophils # 0.3 (0-0.7) k/uL Basophils # 0.1 (0-0.2) k/uL Sodium 141 (137-145) mmol/L Potassium 4.3 (3.5-5.1) mmol/L Chloride 109 H (98-107) mmol/L Carbon Dioxide 25 (22-30) mmol/L Anion Gap 7 mmol/L BUN 14 (9-20) mg/dL Creatinine 1.05 (0.66-1.25) mg/dL Est GFR (CKD-EPI)AfAm >90 (>60 ml/min/1.73 sqM) Est GFR (CKD-EPI)NonAf >90 (>60 ml/min/1.73 sqM) Glucose 89 (74-99) mg/dL Plasma Lactic Acid Raji (0.7-2.0) mmol/L Calcium 9.2 (8.4-10.2) mg/dL Total Bilirubin 0.4 (0.2-1.3) mg/dL AST 37 (17-59) U/L ALT 47 (4-49) U/L Alkaline Phosphatase 65 (38-126) U/L Total Protein 6.7 (6.3-8.2) g/dL Albumin 4.3 (3.5-5.0) g/dL Lipase 103 (23-300) U/L Urine Color Yellow Urine Appearance Clear (Clear) Urine pH 6.0 (5.0-8.0) Ur Specific [place] 1.029 (1.001-1.035) Urine Protein Trace H (Negative) Urine Glucose (UA) Negative (Negative) Urine Ketones Negative (Negative) Urine Blood Negative (Negative) Urine Nitrite Negative (Negative) Urine Bilirubin Negative (Negative) Urine Urobilinogen <2.0 (<2.0) mg/dL Ur Leukocyte Esterase Negative (Negative) 05/14/20 Range/Units 20:53 WBC (3.8-10.6) k/uL RBC (4.30-5.90) m/uL Hgb (13.0-17.5) gm/dL Hct (39.0-53.0) % MCV (80.0-100.0) fL MCH (25.0-35.0) pg MCHC (31.0-37.0) g/dL RDW (11.5-15.5) % Plt Count (150-450) k/uL Neutrophils % % Lymphocytes % % Monocytes % % Eosinophils % % Basophils % % Neutrophils # (1.3-7.7) k/uL Lymphocytes # (1.0-4.8) k/uL Monocytes # (0-1.0) k/uL Eosinophils # (0-0.7) k/uL Basophils # (0-0.2) k/uL Sodium (137-145) mmol/L Potassium (3.5-5.1) mmol/L Chloride (98-107) mmol/L Carbon Dioxide (22-30) mmol/L Anion Gap mmol/L BUN (9-20) mg/dL Creatinine (0.66-1.25) mg/dL Est GFR (CKD-EPI)AfAm (>60 ml/min/1.73 sqM) Est GFR (CKD-EPI)NonAf (>60 ml/min/1.73 sqM) Glucose (74-99) mg/dL Plasma Lactic Acid Raji 1.1 (0.7-2.0) mmol/L Calcium (8.4-10.2) mg/dL Total Bilirubin (0.2-1.3) mg/dL AST (17-59) U/L ALT (4-49) U/L Alkaline Phosphatase (38-126) U/L Total Protein (6.3-8.2) g/dL Albumin (3.5-5.0) g/dL Lipase (23-300) U/L Urine Color Urine Appearance (Clear) Urine pH (5.0-8.0) Ur Specific [place] (1.001-1.035) Urine Protein (Negative) Urine Glucose (UA) (Negative) Urine Ketones (Negative) Urine Blood (Negative) Urine Nitrite (Negative) Urine Bilirubin (Negative) Urine Urobilinogen (<2.0) mg/dL Ur Leukocyte Esterase (Negative) Disposition Clinical Impression: Abdominal pain Disposition: HOME SELF-CARE Condition: Stable Instructions (If sedation given, give patient instructions): Abdominal Pain (ED) Additional Instructions: follow-up with primary care provider tomorrow. Return to ER if any worsening symptoms. Is patient prescribed a controlled substance at d/c from ED?: No Referrals: José Manuel Cornejo [Primary Care Provider] - 1-2 days
[2020-05-14 21:43] LABS: Appearance,Urine Clear (Clear); Bilirubin,Urine Negative (Negative); Blood,Urine Negative (Negative); Color,Urine Yellow; Glucose,Urine (UA) Negative (Negative); Ketones,Urine Negative (Negative); Leukocyte Esterase,Urine Negative (Negative); Nitrite,Urine Negative (Negative); Protein,Urine Trace (Negative); Specific Gravity,Urine 1.029 (1.001-1.035); Urobilinogen,Urine <2.0 mg/dL (<2.0)
[2020-05-14 21:51] LABS: Basophils # (A) 0.1 k/uL (0-0.2); Basophils % (A) 1 %; Eosinophils # (A) 0.3 k/uL (0-0.7); Eosinophils % (A) 3 %; HCT 47.1 % (39.0-53.0); HGB 15.5 gm/dL (13.0-17.5); Lymphocytes # (A) 3.6 k/uL (1.0-4.8); Lymphocytes % (A) 32 %; MCH 30.8 pg (25.0-35.0); MCV 93.3 fL (80.0-100.0); Mean Platelet Volume 6.9; Monocytes # (A) 0.6 k/uL (0-1.0); Monocytes % (A) 5 %; Neutrophils # (A) 6.7 k/uL (1.3-7.7); Neutrophils % (A) 59 %; Platelet Count 297 k/uL (150-450); RBC 5.05 m/uL (4.30-5.90); RDW 12.5 % (11.5-15.5); WBC 11.3 k/uL (3.8-10.6)
[2020-05-14 21:58] LABS: ALT 47 U/L (4-49); AST 37 U/L (17-59); African American GFR (CKD) >90 (>60 ml/min/1.73 sqM); Albumin 4.3 g/dL (3.5-5.0); Alkaline Phosphatase 65 U/L (38-126); Anion Gap 7 mmol/L; Blood Urea Nitrogen 14 mg/dL (9-20); Calcium 9.2 mg/dL (8.4-10.2); Carbon Dioxide 25 mmol/L (22-30); Chloride 109 mmol/L (98-107); Glucose 89 mg/dL (74-99); Non-African American GFR(CKD) >90 (>60 ml/min/1.73 sqM); Potassium 4.3 mmol/L (3.5-5.1); Sodium 141 mmol/L (137-145); Total Bilirubin 0.4 mg/dL (0.2-1.3); Total Protein 6.7 g/dL (6.3-8.2)
--- NOTE | 2020-05-14 22:34 | CT ---
EXAMINATION TYPE: CT abdomen pelvis w con DATE OF EXAM: 05/14/2020 COMPARISON: None HISTORY: Abdominal pain and diarrhea. CT DLP: 1678.4 mGycm Automated exposure control for dose reduction was used. CONTRAST: Performed with IV Contrast, patient injected with 100ml mL of Isovue 300. Lung bases are clear. There is no pleural effusion. Heart size is normal. There is no pericardial eff usion. There is mild fatty infiltration of the liver. Spleen stomach pancreas gallbladder appear normal. Adin e ducts are not dilated. There is no adrenal mass. Kidneys show satisfactory contrast opacification. There is no hydronephrosi s. Ureters are not dilated. Delayed images show normal renal excretion. There is no retroperitoneal adenopathy. Bladder distends smoothly. There is no inguinal hernia. There is no free fluid in the pelvis. Appendix is posterior and appears normal. There is no mesenteric edema. There is no ascites or free air. There is no bowel obstruction. There i s 2 x 1 cm umbilical hernia that contains fat. Lumbar vertebra have normal alignment. There is no compression fracture. The bony pelvis is intact. P roximal femurs are intact. IMPRESSION: Negative CT scan abdomen and pelvis. Normal appendix.
[2020-05-14 23:57] VITALS: BP 118/71; PULSE 69; TEMP 98
== END 2020-05-14 22:14 | disposition home or self-care (01) ==
LOC: EC 18:31
DX: R10.32 Left lower quadrant pain (principal); R11.2 Nausea with vomiting, unspecified; R19.7 Diarrhea, unspecified; J45.909 Unspecified asthma, uncomplicated; Z79.51 Long term (current) use of inhaled steroids; Z79.899 Other long term (current) drug therapy; Z88.8 Allergy status to other drugs, medicaments and biological substances; Z91.030 Bee allergy status
CPT/HCPCS: 36415; 80053; 83605; 83690; 85025; 81003; 74177; 99284; 96374; 96361; J1885; Q9967

== ENCOUNTER 2020-06-26 13:55 | Emergency (ER) | payer OTHER ==
[2020-06-26 14:30] VITALS: BP 125/76; PULSE 107; RESP 20; TEMP 98.9
--- NOTE | 2020-06-26 14:37 | ED ---
URI HPI - General Chief Complaint: Upper Respiratory Infection Stated Complaint: COVID Test Time Seen by Provider: 06/26/20 14:31 Source: patient Mode of arrival: ambulatory Limitations: no limitations - History of Present Illness Initial Comments: 30-year-old male with no severe past medical history aside from intermittent asthma presenting to ER today for chief complaint of nasal congestion. Patient states she's had noticed nasal congestion since he's got another shower yesterday. Patient states that he received a phone call this afternoon from his uncle who he recently went to a with who states he was exposed by another coworker took over 19 infection. Patient denies a cough chest pain shortness of breath that is new. Patient denies fevers. Patient denies vomiting diarrhea or additional complaints upon arrival patient appears well nontoxic no acute distress. Requesting covid test. - Related Data Home Medications Medication Instructions Recorded Confirmed Albuterol Sulfate [Proair Hfa] 1 - 2 puff INHALATION RT-Q6H PRN 05/14/20 05/14/20 Ammonium Lactate Lotion 1 applic TOPICAL BID PRN 05/14/20 05/14/20 [Lac-Hydrin 12% Lotion] Fluticasone Nasal [place] [Flonase 1 spr EA NOSTRIL DAILY PRN 05/14/20 05/14/20 Nasal [place]] Fluticasone Propion/Salmeterol 1 puff INHALATION RT-DAILY 05/14/20 05/14/20 [Wixela 250-50 Inhub] Ketoconazole [Ketoconazole 2%] 1 applic TOPICAL BID PRN 05/14/20 05/14/20 Nicotine 21Mg/24Hr Patch [Habitrol] 1 patch TRANSDERM DAILY 05/14/20 05/14/20 Omeprazole 40 mg PO DAILY 05/14/20 05/14/20 Allergies Allergy/AdvReac Type Severity Reaction Status Date / Time cholecalciferol (vitamin D3) Allergy Unknown Verified 06/26/20 14:30 [From Vitamin D3] venom-honey bee Allergy Unknown Verified 06/26/20 14:30 [bee venom (honey bee)] Review of Systems ROS Statement: Those systems with pertinent positive or pertinent negative responses have been documented in the HPI. ROS Other: All systems not noted in ROS Statement are negative. Past Medical History Past Medical History: Asthma, GERD/Reflux Additional Past Medical History / Comment(s): BACK PAIN,IBS History of Any Multi-Drug Resistant Organisms: None Reported Past Surgical History: Ear Surgery, Tonsillectomy Additional Past Surgical History / Comment(s): NASAL SURGERY Past Psychological History: ADD/ADHD, Bipolar, Depression, Schizoaffective Disorder, Schizophrenia Smoking Status: Current every day smoker Past Alcohol Use History: Occasional Past Drug Use History: None Reported General Exam - General Exam Comments Initial Comments: General: The patient is awake and alert, in no distress, and does not appear acutely ill. Eye: Pupils are equal, round, extra-ocular movements are intact. No nystagmus. There is normal conjunctiva bilaterally. No signs of icterus. Ears, nose, mouth and throat: There are moist mucous membranes and no oral lesions. No congestion Cardiovascular: There is a regular rate and rhythm. No murmur, rub or gallop is appreciated. Respiratory: Lungs are clear to auscultation, respirations are non-labored, breath sounds are equal. No wheezes, stridor, rales, or rhonchi. Musculoskeletal: Normal ROM, no tenderness. Strength 5/5. Sensation intact. Radial pulses equal bilaterally 2+. Neurological: A&O x 3. CN II-XII intact grossly, There are no obvious motor or sensory deficits. Coordination appears grossly intact. Speech is normal. Skin: Skin is warm and dry and no rashes or lesions are noted. Psychiatric: Cooperative, appropriate mood & affect, normal judgment. Limitations: no limitations Course Vital Signs 06/26/20 14:26 Temperature 98.9 F Pulse Rate 107 H Respiratory 20 Rate Blood Pressure 125/76 Medical Decision Making - Medical Decision Making Lungs clear. No fever. Appear nontoxic. Symptom nasal congestion. No hypoxia. Patient presenting for covid test. pt swabbed and will be called with results. Covid test (-). Pt called at [phone], met patient in waiting room and gave prescription with results on it as requested by patient. - Lab Data Lab Results 06/26/20 Range/Units 14:53 Coronavirus (PCR) Not Detected (Not Detectd) Disposition Clinical Impression: Exposure to COVID-19 virus, Congestion of nasal sinus Disposition: HOME SELF-CARE Condition: Good Instructions (If sedation given, give patient instructions): Upper Respiratory Infection (ED) Additional Instructions: Please use medication as discussed. Please follow-up with family doctor in the next 2 days, a soft quarantine until symptom-free and fever free x 48 hours. Please return to emergency room if the symptoms increase or worsen or for any other concerns. Is patient prescribed a controlled substance at d/c from ED?: No Referrals: José Manuel Cornejo [Primary Care Provider] - 1-2 days Time of Disposition: 14:37
== END 2020-06-26 15:00 | disposition home or self-care (01) ==
LOC: SUPCPDRO 13:55 → EC 13:55
DX: R09.81 Nasal congestion (principal); K21.9 Gastro-esophageal reflux disease without esophagitis; J45.909 Unspecified asthma, uncomplicated; F17.200 Nicotine dependence, unspecified, uncomplicated; Z79.899 Other long term (current) drug therapy; Z79.51 Long term (current) use of inhaled steroids; Z88.8 Allergy status to other drugs, medicaments and biological substances; Z91.030 Bee allergy status; Z20.828 Contact with and (suspected) exposure to other viral communicable diseases
CPT/HCPCS: 87635; 99283

== ENCOUNTER 2020-08-19 18:22 | Emergency (ER) | payer OTHER ==
[2020-08-19 18:26] VITALS: BP 126/73; PULSE 103; RESP 17; TEMP 98.3
[2020-08-19] MEDS ORDERED: PENICILLIN VK 500MG STARTER 4 TAB BTL PO STA (18:57)
--- NOTE | 2020-08-19 18:58 | ED ---
General Adult HPI - General Chief complaint: Dental/Oral Stated complaint: dental pain Time Seen by Provider: 08/19/20 18:27 Source: patient, RN notes reviewed Mode of arrival: ambulatory Limitations: no limitations - History of Present Illness Initial comments: 30-year-old male presents to the emergency room for dental pain. Patient has had dental pain for about a week and a half. States it is in the right lower jaw as well as the right upper jaw. Believes the right lower jaw is more painful. Denies any swelling of the face. Denies fevers or chills. Denies any sublingual edema. Denies any neck stiffness or difficulty swallowing. Patient states he is trying to get into his dentist and is on the cancel list.Patient has no other complaints at this time including shortness of breath, chest pain, abdominal pain, nausea or vomiting, headache, or visual changes. - Related Data Home Medications Medication Instructions Recorded Confirmed Albuterol Sulfate [Proair Hfa] 1 - 2 puff INHALATION RT-Q6H PRN 05/14/20 05/14/20 Ammonium Lactate Lotion 1 applic TOPICAL BID PRN 05/14/20 05/14/20 [Lac-Hydrin 12% Lotion] Fluticasone Nasal [place] [Flonase 1 spr EA NOSTRIL DAILY PRN 05/14/20 05/14/20 Nasal [place]] Fluticasone Propion/Salmeterol 1 puff INHALATION RT-DAILY 05/14/20 05/14/20 [Wixela 250-50 Inhub] Ketoconazole [Ketoconazole 2%] 1 applic TOPICAL BID PRN 05/14/20 05/14/20 Nicotine 21Mg/24Hr Patch [Habitrol] 1 patch TRANSDERM DAILY 05/14/20 05/14/20 Omeprazole 40 mg PO DAILY 05/14/20 05/14/20 Previous Rx's Medication Instructions Recorded Acetaminophen [Tylenol] 500 mg PO Q4-6H PRN #20 tab 08/19/20 Ibuprofen [Motrin] 600 mg PO Q8HR PRN #20 tab 08/19/20 Penicillin V Potassium [Pen Vee K] 500 mg PO Q6H 10 Days #40 tablet 08/19/20 Allergies Allergy/AdvReac Type Severity Reaction Status Date / Time cholecalciferol (vitamin D3) Allergy Unknown Verified 08/19/20 18:26 [From Vitamin D3] venom-honey bee Allergy Unknown Verified 08/19/20 18:26 [bee venom (honey bee)] Review of Systems ROS Statement: Those systems with pertinent positive or pertinent negative responses have been documented in the HPI. ROS Other: All systems not noted in ROS Statement are negative. Past Medical History Past Medical History: Asthma, GERD/Reflux Additional Past Medical History / Comment(s): BACK PAIN,IBS History of Any Multi-Drug Resistant Organisms: None Reported Past Surgical History: Ear Surgery, Tonsillectomy Additional Past Surgical History / Comment(s): NASAL SURGERY Past Psychological History: ADD/ADHD, Bipolar, Depression, Schizoaffective Disorder, Schizophrenia Smoking Status: Current every day smoker Past Alcohol Use History: Occasional Past Drug Use History: None Reported General Exam Limitations: no limitations General appearance: alert, in no apparent distress Head exam: Present: atraumatic, normocephalic, normal inspection Eye exam: Present: normal appearance, PERRL, EOMI. Absent: scleral icterus, conjunctival injection, periorbital swelling ENT exam: Present: mucous membranes moist. Absent: normal oropharynx (Poor dentition noted. Tooth 31 is painful to percussion with a tooth blade. There is no evidence of abscess on lower or upper jaw or patient's pain is. No sublingual edema.) Course Vital Signs 08/19/20 18:23 Temperature 98.3 F Pulse Rate 103 H Respiratory 17 Rate Blood Pressure 126/73 O2 Sat by Pulse 98 Oximetry Medical Decision Making - Medical Decision Making Patient treated with penicillin. Will also be written prescriptions for Motrin and Tylenol as he reports he does not have this and cannot afford it. He will follow-up with his dentist. I will also give him referral to [facility]. He will return here for any worsening symptoms. Disposition Clinical Impression: Pain, dental Disposition: HOME SELF-CARE Condition: Good Instructions (If sedation given, give patient instructions): Toothache (ED) Additional Instructions: Please take Motrin and Tylenol for pain. Take penicillin as directed. Follow- up with your doctor in one to 2 days. Return to the emergency room for any worsening symptoms. [facility] [address] [place] [id number] (existing clients only) New clients: [phone] 1st consult: $50 (includes XRs) Usually 30% less than private dentist for visits after. [employer] Have to pay $50 for Xrays and rest is covered [phone] Prescriptions: Ibuprofen [Motrin] 600 mg PO Q8HR PRN #20 tab PRN Reason: Pain Penicillin V Potassium [Pen Vee K] 500 mg PO Q6H 10 Days #40 tablet Acetaminophen [Tylenol] 500 mg PO Q4-6H PRN #20 tab PRN Reason: Pain Is patient prescribed a controlled substance at d/c from ED?: No Referrals: José Manuel Cornejo [Primary Care Provider] - 1-2 days Time of Disposition: 18:57
== END 2020-08-19 19:09 | disposition home or self-care (01) ==
LOC: EC 18:22
DX: K08.89 Other specified disorders of teeth and supporting structures (principal); F17.200 Nicotine dependence, unspecified, uncomplicated; J45.909 Unspecified asthma, uncomplicated; K21.9 Gastro-esophageal reflux disease without esophagitis; K58.9 Irritable bowel syndrome, unspecified; Z79.899 Other long term (current) drug therapy; Z79.51 Long term (current) use of inhaled steroids; Z88.8 Allergy status to other drugs, medicaments and biological substances; Z91.030 Bee allergy status
CPT/HCPCS: 99282

== ENCOUNTER 2020-11-19 22:29 | Emergency (ER) | payer OTHER ==
[2020-11-19 23:31] VITALS: BP 119/76; PULSE 99; TEMP 98.7
[2020-11-20] MEDS ORDERED: ERYTHROMYCIN 5 MG/GM OPHTH OINT 3.5 GM TUBE RIGHT EYE STA (01:12)
[2020-11-20] MEDS ORDERED: ACET/COD 300 MG/30 MG STARTER PACK 6 TAB BTL PO STA (01:12)
--- NOTE | 2020-11-20 01:14 | ED ---
Eye Problem HPI - General Chief complaint: Eye Problems Stated complaint: Eye Problem Time Seen by Provider: 11/20/20 00:59 Source: patient Mode of arrival: ambulatory Limitations: no limitations - History of Present Illness Initial comments: Nontoxic 30-year-old male presenting for right eye bump, drainage and redness. Patient states he has had a stye in his eye for the past 2 weeks. He states there is no drainage and crusting in the morning from the right eye as well as I redness. He denies a. I movement. He denies any external ocular swelling. He states he can feel a bump on the lower lid. Patient denies any nausea vomiting headaches he denies any fevers chills general malaise. Patient is no additional complaints he denies any vision changes. - Related Data Home Medications Medication Instructions Recorded Confirmed Albuterol Sulfate [Proair Hfa] 1 - 2 puff INHALATION RT-Q6H PRN 05/14/20 0 Ammonium Lactate Lotion 1 applic TOPICAL BID PRN 05/14/20 05/14/20 [Lac-Hydrin 12% Lotion] Fluticasone Nasal [place] [Flonase 1 spr EA NOSTRIL DAILY PRN 05/14/20 05/14/20 Nasal [place]] Fluticasone Propion/Salmeterol 1 puff INHALATION RT-DAILY 05/14/20 05/14/20 [Wixela 250-50 Inhub] Ketoconazole [Ketoconazole 2%] 1 applic TOPICAL BID PRN 05/14/20 05/14/20 Nicotine 21Mg/24Hr Patch [Habitrol] 1 patch TRANSDERM DAILY 05/14/20 05/14/20 Omeprazole 40 mg PO DAILY 05/14/20 05/14/20 Previous Rx's Medication Instructions Recorded Acetaminophen [Tylenol] 500 mg PO Q4-6H PRN #20 tab 08/19/20 Ibuprofen [Motrin] 600 mg PO Q8HR PRN #20 tab 08/19/20 Penicillin V Potassium [Pen Vee K] 500 mg PO Q6H 10 Days #40 tablet 08/19/20 Erythromycin Ophth Oint [Romycin 1 applic RIGHT EYE QID 5 Days #1 11/20/20 Ophth Oint] tube Allergies Allergy/AdvReac Type Severity Reaction Status Date / Time cholecalciferol (vitamin D3) Allergy Unknown Verified 11/19/20 23:28 [From Vitamin D3] venom-honey bee Allergy Unknown Verified 11/19/20 23:28 [bee venom (honey bee)] Review of Systems ROS Statement: Those systems with pertinent positive or pertinent negative responses have been documented in the HPI. ROS Other: All systems not noted in ROS Statement are negative. Past Medical History Past Medical History: Asthma, GERD/Reflux Additional Past Medical History / Comment(s): BACK PAIN,IBS History of Any Multi-Drug Resistant Organisms: None Reported Past Surgical History: Ear Surgery, Tonsillectomy Additional Past Surgical History / Comment(s): NASAL SURGERY Past Psychological History: ADD/ADHD, Bipolar, Depression, Schizoaffective Disorder, Schizophrenia Smoking Status: Current every day smoker Past Alcohol Use History: Occasional Past Drug Use History: None Reported General Exam - General Exam Comments Initial Comments: General: The patient is awake and alert, in no distress, and does not appear acutely ill. Eye: +3mm pupils are equal, round and reactive to light, extra-ocular movements are intact. No nystagmus. There is right eye conjunctival injection, right lower lid hordeolum, eye crusting. No signs of icterus. No external swelling, redness, no pain with EOM. Conjunctival injection is limbus bearing Ears, nose, mouth and throat: There are moist mucous membranes and no oral lesions. Neck: The neck is supple, there is no tenderness or JVD. Cardiovascular: There is a regular rate and rhythm. No murmur, rub or gallop is appreciated. Respiratory: Lungs are clear to auscultation, respirations are non-labored, breath sounds are equal. No wheezes, stridor, rales, or rhonchi. Musculoskeletal: Normal ROM, no tenderness. Strength 5/5. Sensation intact. Pulses equal bilaterally 2+. Neurological: A&O x 3. CN II-XII intact, There are no obvious motor or sensory deficits. Coordination appears grossly intact. Speech is normal. Skin: Skin is warm and dry and no rashes or lesions are noted. Psychiatric: Cooperative, appropriate mood & affect, normal judgment. Limitations: no limitations Course Vital Signs 11/19/20 11/20/20 23:28 02:10 Temperature 98.7 F Pulse Rate 99 Respiratory 18 16 Rate Blood Pressure 119/76 O2 Sat by Pulse 97 Oximetry Medical Decision Making - Medical Decision Making pt recommended 24 hours ophthalmology follow-up, warm compresses, topical antibiotics, and return for worsening symptoms--patient is agreeable to this care plan discharge at this time as well as my attending provider Disposition Clinical Impression: Hordeolum externum of right lower eyelid Disposition: HOME SELF-CARE Condition: Good Instructions (If sedation given, give patient instructions): [place] (ED) Additional Instructions: Please use medication as discussed. Please follow-up with ophthalmology no later than 48 hours. If pain/swelling increase immediate return to ER. Apply warm compresses Please return to emergency room if the symptoms increase or worsen or for any other concerns. Prescriptions: Erythromycin Ophth Oint [Romycin Ophth Oint] 1 applic RIGHT EYE QID 5 Days #1 tube Is patient prescribed a controlled substance at d/c from ED?: No Referrals: José Manuel Cornejo [Primary Care Provider] - 1-2 days Real García MD [STAFF PHYSICIAN] - 1-2 days Time of Disposition: 01:14
[2020-11-20 02:10] VITALS: RESP 16
== END 2020-11-20 02:10 | disposition home or self-care (01) ==
LOC: EC 22:29
DX: H00.012 Hordeolum externum right lower eyelid (principal); F17.200 Nicotine dependence, unspecified, uncomplicated; J45.909 Unspecified asthma, uncomplicated; K21.9 Gastro-esophageal reflux disease without esophagitis; K58.9 Irritable bowel syndrome, unspecified; Z79.51 Long term (current) use of inhaled steroids; Z79.899 Other long term (current) drug therapy; Z88.8 Allergy status to other drugs, medicaments and biological substances; Z91.030 Bee allergy status
CPT/HCPCS: 99283

== ENCOUNTER 2020-12-05 15:14 | Emergency (ER) | payer OTHER ==
[2020-12-05 15:53] VITALS: BP 124/77; PULSE 82; RESP 17; TEMP 99
--- NOTE | 2020-12-05 16:33 | ED ---
URI HPI - General Chief Complaint: Upper Respiratory Infection Stated Complaint: wants covid test Time Seen by Provider: 12/05/20 16:29 Source: patient, RN notes reviewed Mode of arrival: ambulatory Limitations: no limitations - History of Present Illness Initial Comments: 30-year-old male presents emergency from chief complaint of wanting Covid testing. Patient states she's had slight rhinorrhea and cough no chest pain shortness with no GI symptoms. Patient has no other system possible pressure complaints this time. - Related Data Home Medications Medication Instructions Recorded Confirmed Albuterol Sulfate [Proair Hfa] 1 - 2 puff INHALATION RT-Q6H PRN 05/14/20 05/14/20 Ammonium Lactate Lotion 1 applic TOPICAL BID PRN 05/14/20 05/14/20 [Lac-Hydrin 12% Lotion] Fluticasone Nasal [place] [Flonase 1 spr EA NOSTRIL DAILY PRN 05/14/20 05/14/20 Nasal [place]] Fluticasone Propion/Salmeterol 1 puff INHALATION RT-DAILY 05/14/20 05/14/20 [Wixela 250-50 Inhub] Ketoconazole [Ketoconazole 2%] 1 applic TOPICAL BID PRN 05/14/20 05/14/20 Nicotine 21Mg/24Hr Patch [Habitrol] 1 patch TRANSDERM DAILY 05/14/20 05/14/20 Omeprazole 40 mg PO DAILY 05/14/20 05/14/20 Previous Rx's Medication Instructions Recorded Acetaminophen [Tylenol] 500 mg PO Q4-6H PRN #20 tab 08/19/20 Ibuprofen [Motrin] 600 mg PO Q8HR PRN #20 tab 08/19/20 Penicillin V Potassium [Pen Vee K] 500 mg PO Q6H 10 Days #40 tablet 08/19/20 Erythromycin Ophth Oint [Romycin 1 applic RIGHT EYE QID 5 Days #1 11/20/20 Ophth Oint] tube Allergies Allergy/AdvReac Type Severity Reaction Status Date / Time cholecalciferol (vitamin D3) Allergy Unknown Verified 12/05/20 15:53 [From Vitamin D3] venom-honey bee Allergy Unknown Verified 12/05/20 15:53 [bee venom (honey bee)] Review of Systems ROS Statement: Those systems with pertinent positive or pertinent negative responses have been documented in the HPI. ROS Other: All systems not noted in ROS Statement are negative. Past Medical History Past Medical History: Asthma, GERD/Reflux Additional Past Medical History / Comment(s): BACK PAIN,IBS History of Any Multi-Drug Resistant Organisms: None Reported Past Surgical History: Ear Surgery, Tonsillectomy Additional Past Surgical History / Comment(s): NASAL SURGERY, right eye sty removed Past Psychological History: ADD/ADHD, Bipolar, Depression, Schizoaffective Disorder, Schizophrenia Smoking Status: Current every day smoker Past Alcohol Use History: Occasional Past Drug Use History: None Reported General Exam Limitations: no limitations General appearance: alert, in no apparent distress Head exam: Present: atraumatic, normocephalic, normal inspection Eye exam: Present: normal appearance, PERRL, EOMI. Absent: scleral icterus, conjunctival injection, periorbital swelling ENT exam: Present: normal exam, normal oropharynx, mucous membranes moist, TM's normal bilaterally Neck exam: Present: normal inspection, full ROM. Absent: tenderness, lymphadenopathy Respiratory exam: Present: normal lung sounds bilaterally. Absent: respiratory distress, wheezes, rales, rhonchi, stridor Cardiovascular Exam: Present: regular rate, normal rhythm, normal heart sounds. Absent: systolic murmur, diastolic murmur, rubs, gallop, clicks GI/Abdominal exam: Present: soft, normal bowel sounds. Absent: distended, tenderness, guarding, rebound, rigid Course Vital Signs 12/05/20 15:50 Temperature 99.0 F Pulse Rate 82 Respiratory 17 Rate Blood Pressure 124/77 O2 Sat by Pulse 97 Oximetry Medical Decision Making - Medical Decision Making covid test is negative - Lab Data Lab Results 12/05/20 Range/Units 15:53 Coronavirus (PCR) Not Detected (Not Detectd) Disposition Clinical Impression: Encounter for laboratory testing for COVID-19 virus Disposition: HOME SELF-CARE Condition: Stable Instructions (If sedation given, give patient instructions): Coronavirus Disease 2019 (COVID-19) Additional Instructions: Please return to the Emergency Department if symptoms worsen or any other concerns. Is patient prescribed a controlled substance at d/c from ED?: No Referrals: José Manuel Cornejo [Primary Care Provider] - 1-2 days Time of Disposition: 16:33
== END 2020-12-05 16:45 | disposition home or self-care (01) ==
LOC: EC 15:14
DX: J34.89 Other specified disorders of nose and nasal sinuses (principal); R05 Cough; J45.909 Unspecified asthma, uncomplicated; K21.9 Gastro-esophageal reflux disease without esophagitis; F32.9 Major depressive disorder, single episode, unspecified; F90.9 Attention-deficit hyperactivity disorder, unspecified type; F20.9 Schizophrenia, unspecified; F17.200 Nicotine dependence, unspecified, uncomplicated; Z20.822 Contact with and (suspected) exposure to COVID-19; Z79.51 Long term (current) use of inhaled steroids; Z79.899 Other long term (current) drug therapy
CPT/HCPCS: 87635; 99283

== ENCOUNTER 2021-02-07 08:29 | Emergency (ER) | payer OTHER ==
[2021-02-07 08:35] VITALS: RESP 18; TEMP 98
[2021-02-07] MEDS ORDERED: DIPHENOX-ATROP 2.5-0.025 MG 1 EACH TAB PO STA (08:50)
[2021-02-07] MEDS ORDERED: SODIUM CHLORIDE 0.9% 1,000 ML IV STA (08:50)
--- NOTE | 2021-02-07 08:53 | ED ---
General Adult HPI - General Chief complaint: Abdominal Pain Stated complaint: IBS Time Seen by Provider: 02/07/21 08:30 Source: patient, RN notes reviewed, old records reviewed Mode of arrival: ambulatory Limitations: no limitations - History of Present Illness Initial comments: This is a 31-year-old male who has a past medical history significant for IBS. Patient states he has diarrhea every day but over the last 5 days he's been having diarrhea about every hour. Patient states today he started having some abdominal cramping so decided come to the emergency department. Patient states he takes nothing for his diarrhea. Patient denies any fever chills per patient denies any vomiting except 1 time a week ago. Patient denies any chest pain dif ficult breathing shortness of breath per patient denies any fever chills or cough. Patient also mentions that he missed work 8:00 this morning. - Related Data Home Medications Medication Instructions Recorded Confirmed Albuterol Sulfate [Proair Hfa] 1 - 2 puff INHALATION RT-Q6H PRN 05/14/20 02/07/21 Omeprazole 40 mg PO DAILY 05/14/20 02/07/21 Fluticasone/Salmeterol [Advair 1 puff INHALATION RT-BID PRN 02/07/21 02/07/21 250-50 Diskus] Allergies Allergy/AdvReac Type Severity Reaction Status Date / Time cholecalciferol (vitamin D3) Allergy Unknown Verified 02/07/21 09:13 [From Vitamin D3] venom-honey bee Allergy Unknown Verified 02/07/21 09:13 [bee venom (honey bee)] Review of Systems ROS Statement: Those systems with pertinent positive or pertinent negative responses have been documented in the HPI. ROS Other: All systems not noted in ROS Statement are negative. Past Medical History Past Medical History: Asthma, GERD/Reflux Additional Past Medical History / Comment(s): BACK PAIN,IBS History of Any Multi-Drug Resistant Organisms: None Reported Past Surgical History: Ear Surgery, Tonsillectomy Additional Past Surgical History / Comment(s): NASAL SURGERY, right eye sty removed Past Psychological History: ADD/ADHD, Bipolar, Depression, Schizoaffective Diso rder, Schizophrenia Smoking Status: Current every day smoker Past Alcohol Use History: Occasional Past Drug Use History: None Reported General Exam - General Exam Comments Initial Comments: GENERAL: Patient is well-developed and well-nourished. Patient is nontoxic and well- hydrated and is in no acute distress. ENT: Neck is soft and supple. No significant lymphadenopathy is noted. Oropharynx is clear. Moist mucous membranes. Neck has full range of motion without eliciting any pain. EYES: The sclera were anicteric and conjunctiva were pink and moist. Extraocular movements were intact and pupils were equal round and reactive to light. Eyelid s were unremarkable. PULMONARY: Unlabored respirations. Good breath sounds bilaterally. No audible rales rhonchi or wheezing was noted. CARDIOVASCULAR: There is a regular rate and rhythm without any murmurs gallops or rubs. ABDOMEN: Soft and nontender with normal bowel sounds. SKIN: Skin is clear with no lesions or rashes and otherwise unremarkable. NEUROLOGIC: Patient is alert and oriented x3. Cranial nerves II through XII are grossly intact. Motor and sensory are also intact. Normal speech, volume and content. Symmetrical smile. MUSCULOSKELETAL: Normal extremities with adequate strength and full range of motion. No lower extremity swelling or edema. No calf tenderness. LYMPHATICS: No significant lymphadenopathy is noted PSYCHIATRIC: Normal psychiatric evaluation. Limitations: no limitations Course Vital Signs 02/07/21 08:31 Temperature 98 F Pulse Rate 84 Respiratory 18 Rate Blood Pressure 113/71 O2 Sat by Pulse 97 Oximetry Medical Decision Making - Medical Decision Making Patient had no diarrhea while in the emergency department and when I went by the room twice he was in no distress. - Lab Data Result diagrams: 02/07/21 08:55 02/07/21 08:55 Lab Results 02/07/21 02/07/21 Range/Units 08:55 08:55 WBC 10.7 H (3.8-10.6) k/uL RBC 4.89 (4.30-5.90) m/uL Hgb 15.6 (13.0-17.5) gm/dL Hct 45.7 (39.0-53.0) % MCV 93.4 (80.0-100.0) fL MCH 31.9 (25.0-35.0) pg MCHC 34.1 (31.0-37.0) g/dL RDW 12.7 (11.5-15.5) % Plt Count 290 (150-450) k/uL MPV 7.5 Neutrophils % 55 % Lymphocytes % 33 % Monocytes % 7 % Eosinophils % 3 % Basophils % 1 % Neutrophils # 5.9 (1.3-7.7) k/uL Lymphocytes # 3.6 (1.0-4.8) k/uL Monocytes # 0.7 (0-1.0) k/uL Eosinophils # 0.3 (0-0.7) k/uL Basophils # 0.1 (0-0.2) k/uL Sodium 141 (137-145) mmol/L Potassium 4.5 (3.5-5.1) mmol/L Chloride 108 H (98-107) mmol/L Carbon Dioxide 25 (22-30) mmol/L Anion Gap 8 mmol/L BUN 15 (9-20) mg/dL Creatinine 0.95 (0.66-1.25) mg/dL Est GFR (CKD-EPI)AfAm >90 (>60 ml/min/1.73 sqM) Est GFR (CKD-EPI)NonAf >90 (>60 ml/min/1.73 sqM) Glucose 105 H (74-99) mg/dL Calcium 9.0 (8.4-10.2) mg/dL Total Bilirubin 0.3 (0.2-1.3) mg/dL AST 36 (17-59) U/L ALT 61 H (4-49) U/L Alkaline Phosphatase 69 (38-126) U/L Total Protein 6.4 (6.3-8.2) g/dL Albumin 4.2 (3.5-5.0) g/dL Amylase 46 (30-110) U/L Lipase 116 (23-300) U/L Disposition Clinical Impression: Acute diarrhea Disposition: HOME SELF-CARE Condition: Good Instructions (If sedation given, give patient instructions): Acute Diarrhea (ED) Is patient prescribed a controlled substance at d/c from ED?: No Referrals: José Manuel Cornejo [Primary Care Provider] - 1-2 days Time of Disposition: 09:37
[2021-02-07 09:21] LABS: Basophils # (A) 0.1 k/uL (0-0.2); Basophils % (A) 1 %; Eosinophils # (A) 0.3 k/uL (0-0.7); Eosinophils % (A) 3 %; HCT 45.7 % (39.0-53.0); HGB 15.6 gm/dL (13.0-17.5); Lymphocytes # (A) 3.6 k/uL (1.0-4.8); Lymphocytes % (A) 33 %; MCH 31.9 pg (25.0-35.0); MCHC 34.1 g/dL (31.0-37.0); MCV 93.4 fL (80.0-100.0); Mean Platelet Volume 7.5; Monocytes # (A) 0.7 k/uL (0-1.0); Monocytes % (A) 7 %; Neutrophils # (A) 5.9 k/uL (1.3-7.7); Neutrophils % (A) 55 %; Platelet Count 290 k/uL (150-450); RBC 4.89 m/uL (4.30-5.90); RDW 12.7 % (11.5-15.5); WBC 10.7 k/uL (3.8-10.6)
[2021-02-07 09:24] LABS: ALT 61 U/L (4-49); AST 36 U/L (17-59); African American GFR (CKD) >90 (>60 ml/min/1.73 sqM); Albumin 4.2 g/dL (3.5-5.0); Alkaline Phosphatase 69 U/L (38-126); Amylase 46 U/L (30-110); Anion Gap 8 mmol/L; Blood Urea Nitrogen 15 mg/dL (9-20); Carbon Dioxide 25 mmol/L (22-30); Chloride 108 mmol/L (98-107); Glucose 105 mg/dL (74-99); Lipase 116 U/L (23-300); Non-African American GFR(CKD) >90 (>60 ml/min/1.73 sqM); Potassium 4.5 mmol/L (3.5-5.1); Sodium 141 mmol/L (137-145); Total Bilirubin 0.3 mg/dL (0.2-1.3); Total Protein 6.4 g/dL (6.3-8.2)
[2021-02-07] MEDS ORDERED: DIPHENOX-ATROP STARTER PACK 8 TAB BTL PO STA (09:37)
[2021-02-07 09:51] VITALS: BP 118/82; PULSE 75
== END 2021-02-07 09:55 | disposition home or self-care (01) ==
LOC: EC 08:29
DX: R19.7 Diarrhea, unspecified (principal); R10.9 Unspecified abdominal pain; J45.909 Unspecified asthma, uncomplicated; K21.9 Gastro-esophageal reflux disease without esophagitis; F31.9 Bipolar disorder, unspecified; F41.9 Anxiety disorder, unspecified; F90.9 Attention-deficit hyperactivity disorder, unspecified type; F20.9 Schizophrenia, unspecified; F17.200 Nicotine dependence, unspecified, uncomplicated
CPT/HCPCS: 36415; 80053; 82150; 83690; 85025; 96360; 99284

== ENCOUNTER 2021-02-20 | Emergency (ER) | payer OTHER | END 2021-02-20 18:53 | disposition home or self-care (01) | CPT/HCPCS: 36415; 74018; 80053; 81003; 85025; 96360; 99284 ==

== ENCOUNTER 2021-02-28 12:19 | Emergency (ER) | payer OTHER ==
[2021-02-28 12:28] VITALS: TEMP 98
[2021-02-28] MEDS ORDERED: SODIUM CHLORIDE 0.9% 1,000 ML IV STA (12:50)
--- NOTE | 2021-02-28 12:52 | ED ---
General Adult HPI - General Chief complaint: Abdominal Pain Stated complaint: Abd Pain Time Seen by Provider: 02/28/21 12:46 Source: patient, RN notes reviewed, old records reviewed Mode of arrival: ambulatory Limitations: no limitations - History of Present Illness Initial comments: 31-year-old male presenting for evaluation of right-sided abdominal pain. This is both upper and lower and does travel to the right flank. Patient states his symptoms have been present for the past 2 days. He's had some diarrhea. No constipation. No vomiting. No fever. No previous abdominal surgeries. Pain is constant in nature. - Related Data Home Medications Medication Instructions Recorded Confirmed Albuterol Sulfate [Proair Hfa] 1 - 2 puff INHALATION RT-Q6H PRN 05/14/20 02/07/21 Omeprazole 40 mg PO DAILY 05/14/20 02/07/21 Fluticasone/Salmeterol [Advair 1 puff INHALATION RT-BID PRN 02/07/21 02/07/21 250-50 Diskus] Allergies Allergy/AdvReac Type Severity Reaction Status Date / Time cholecalciferol (vitamin D3) Allergy Unknown Verified 02/28/21 12:27 [From Vitamin D3] venom-honey bee Allergy Unknown Verified 02/28/21 12:27 [bee venom (honey bee)] Review of Systems ROS Statement: Those systems with pertinent positive or pertinent negative responses have been documented in the HPI. ROS Other: All systems not noted in ROS Statement are negative. Past Medical History Past Medical History: Asthma, GERD/Reflux Additional Past Medical History / Comment(s): BACK PAIN,IBS History of Any Multi-Drug Resistant Organisms: None Reported Past Surgical History: Ear Surgery, Tonsillectomy Additional Past Surgical History / Comment(s): NASAL SURGERY, right eye sty removed Past Psychological History: ADD/ADHD, Bipolar, Depression, Schizoaffective Disorder, Schizophrenia Smoking Status: Current every day smoker Past Alcohol Use History: Occasional Past Drug Use History: Prescription Drug Abuse General Exam Limitations: no limitations General appearance: alert, in no apparent distress Head exam: Present: atraumatic, normocephalic Eye exam: Present: normal appearance, PERRL ENT exam: Present: mucous membranes dry Neck exam: Present: normal inspection. Absent: tenderness, meningismus Respiratory exam: Present: normal lung sounds bilaterally. Absent: respiratory distress, wheezes Cardiovascular Exam: Present: regular rate, normal rhythm GI/Abdominal exam: Present: soft, distended, tenderness (Right upper and right lower quadrant tenderness). Absent: guarding, rebound, rigid Extremities exam: Present: normal inspection, normal capillary refill. Absent: pedal edema Neurological exam: Present: alert, oriented X3, CN II-XII intact. Absent: motor sensory deficit Psychiatric exam: Present: normal affect, normal mood Skin exam: Present: warm, dry, intact. Absent: cyanosis, diaphoretic Course Vital Signs 02/28/21 12:25 Temperature 98.0 F Pulse Rate 104 H Respiratory 20 Rate Blood Pressure 107/67 O2 Sat by Pulse 99 Oximetry Medical Decision Making - Medical Decision Making 31-year-old male with a right-sided abdominal pain over the past 2 or 3 days. No vomiting. No fever. No previous abdominal surgeries. Workup is initiated, he has a mild leukocytosis 11.7. He has a elevation of AST and ALT just above the normal range. Is otherwise laboratory testing including urinalysis is unremarkable. I did perform a CT which is consistent with an ascending lightest. The gallbladder is unremarkable. Appendix is unremarkable. Patient is given return parameters. He will use anti-inflammatories for pain. He will eat a bland diet. Return parameters discussed. - Lab Data Result diagrams: 02/28/21 13:02 02/28/21 13:02 Lab Results 02/28/21 02/28/21 02/28/21 Range/Units 13:02 13:02 13:02 WBC 11.7 H (3.8-10.6) k/uL RBC 4.67 (4.30-5.90) m/uL Hgb 15.4 (13.0-17.5) gm/dL Hct 43.7 (39.0-53.0) % MCV 93.5 (80.0-100.0) fL MCH 33.0 (25.0-35.0) pg MCHC 35.3 (31.0-37.0) g/dL RDW 13.0 (11.5-15.5) % Plt Count 261 (150-450) k/uL MPV 7.4 Neutrophils % 66 % Lymphocytes % 25 % Monocytes % 5 % Eosinophils % 2 % Basophils % 0 % Neutrophils # 7.7 (1.3-7.7) k/uL Lymphocytes # 3.0 (1.0-4.8) k/uL Monocytes # 0.6 (0-1.0) k/uL Eosinophils # 0.3 (0-0.7) k/uL Basophils # 0.1 (0-0.2) k/uL PT 9.6 (9.0-12.0) sec INR 0.9 (<1.2) APTT 23.7 (22.0-30.0) sec Sodium (137-145) mmol/L Potassium (3.5-5.1) mmol/L Chloride (98-107) mmol/L Carbon Dioxide (22-30) mmol/L Anion Gap mmol/L BUN (9-20) mg/dL Creatinine (0.66-1.25) mg/dL Est GFR (CKD-EPI)AfAm (>60 ml/min/1.73 sqM) Est GFR (CKD-EPI)NonAf (>60 ml/min/1.73 sqM) Glucose (74-99) mg/dL Plasma Lactic Acid Raji (0.7-2.0) mmol/L Calcium (8.4-10.2) mg/dL Total Bilirubin (0.2-1.3) mg/dL AST (17-59) U/L ALT (4-49) U/L Alkaline Phosphatase (38-126) U/L Total Protein (6.3-8.2) g/dL Albumin (3.5-5.0) g/dL Amylase (30-110) U/L Lipase (23-300) U/L Urine Color Yellow Urine Appearance Clear (Clear) Urine pH 7.0 (5.0-8.0) Ur Specific [place] 1.022 (1.001-1.035) Urine Protein Negative (Negative) Urine Glucose (UA) Negative (Negative) Urine Ketones Negative (Negative) Urine Blood Negative (Negative) Urine Nitrite Negative (Negative) Urine Bilirubin Negative (Negative) Urine Urobilinogen <2.0 (<2.0) mg/dL Ur Leukocyte Esterase Negative (Negative) 02/28/21 02/28/21 Range/Units 13:02 13:02 WBC (3.8-10.6) k/uL RBC (4.30-5.90) m/uL Hgb (13.0-17.5) gm/dL Hct (39.0-53.0) % MCV (80.0-100.0) fL MCH (25.0-35.0) pg MCHC (31.0-37.0) g/dL RDW (11.5-15.5) % Plt Count (150-450) k/uL MPV Neutrophils % % Lymphocytes % % Monocytes % % Eosinophils % % Basophils % % Neutrophils # (1.3-7.7) k/uL Lymphocytes # (1.0-4.8) k/uL Monocytes # (0-1.0) k/uL Eosinophils # (0-0.7) k/uL Basophils # (0-0.2) k/uL PT (9.0-12.0) sec INR (<1.2) APTT (22.0-30.0) sec Sodium 140 (137-145) mmol/L Potassium 4.8 (3.5-5.1) mmol/L Chloride 107 (98-107) mmol/L Carbon Dioxide 25 (22-30) mmol/L Anion Gap 8 mmol/L BUN 15 (9-20) mg/dL Creatinine 0.93 (0.66-1.25) mg/dL Est GFR (CKD-EPI)AfAm >90 (>60 ml/min/1.73 sqM) Est GFR (CKD-EPI)NonAf >90 (>60 ml/min/1.73 sqM) Glucose 104 H (74-99) mg/dL Plasma Lactic Acid Raji 1.1 (0.7-2.0) mmol/L Calcium 9.5 (8.4-10.2) mg/dL Total Bilirubin 0.4 (0.2-1.3) mg/dL AST 61 H (17-59) U/L ALT 98 H (4-49) U/L Alkaline Phosphatase 69 (38-126) U/L Total Protein 6.7 (6.3-8.2) g/dL Albumin 4.3 (3.5-5.0) g/dL Amylase 41 (30-110) U/L Lipase 105 (23-300) U/L Urine Color Urine Appearance (Clear) Urine pH (5.0-8.0) Ur Specific [place] (1.001-1.035) Urine Protein (Negative) Urine Glucose (UA) (Negative) Urine Ketones (Negative) Urine Blood (Negative) Urine Nitrite (Negative) Urine Bilirubin (Negative) Urine Urobilinogen (<2.0) mg/dL Ur Leukocyte Esterase (Negative) Disposition Clinical Impression: Colitis Disposition: HOME SELF-CARE Condition: Good Instructions (If sedation given, give patient instructions): Colitis (ED) Is patient prescribed a controlled substance at d/c from ED?: No Referrals: José Manuel Cornejo [Primary Care Provider] - 1-2 days Time of Disposition: 14:43
[2021-02-28 13:23] LABS: Basophils # (A) 0.1 k/uL (0-0.2); Basophils % (A) 0 %; Eosinophils # (A) 0.3 k/uL (0-0.7); Eosinophils % (A) 2 %; HCT 43.7 % (39.0-53.0); HGB 15.4 gm/dL (13.0-17.5); Lymphocytes % (A) 25 %; MCHC 35.3 g/dL (31.0-37.0); MCV 93.5 fL (80.0-100.0); Mean Platelet Volume 7.4; Monocytes # (A) 0.6 k/uL (0-1.0); Monocytes % (A) 5 %; Neutrophils # (A) 7.7 k/uL (1.3-7.7); Neutrophils % (A) 66 %; Platelet Count 261 k/uL (150-450); RBC 4.67 m/uL (4.30-5.90); WBC 11.7 k/uL (3.8-10.6)
[2021-02-28 13:31] LABS: INR 0.9 (<1.2); Partial Thromboplastin Time 23.7 sec (22.0-30.0); Prothrombin Time 9.6 sec (9.0-12.0)
[2021-02-28 13:49] LABS: ALT 98 U/L (4-49); AST 61 U/L (17-59); African American GFR (CKD) >90 (>60 ml/min/1.73 sqM); Albumin 4.3 g/dL (3.5-5.0); Alkaline Phosphatase 69 U/L (38-126); Amylase 41 U/L (30-110); Anion Gap 8 mmol/L; Blood Urea Nitrogen 15 mg/dL (9-20); Calcium 9.5 mg/dL (8.4-10.2); Carbon Dioxide 25 mmol/L (22-30); Chloride 107 mmol/L (98-107); Glucose 104 mg/dL (74-99); Lipase 105 U/L (23-300); Non-African American GFR(CKD) >90 (>60 ml/min/1.73 sqM); Potassium 4.8 mmol/L (3.5-5.1); Sodium 140 mmol/L (137-145); Total Bilirubin 0.4 mg/dL (0.2-1.3); Total Protein 6.7 g/dL (6.3-8.2)
[2021-02-28 13:54] LABS: Appearance,Urine Clear (Clear); Bilirubin,Urine Negative (Negative); Blood,Urine Negative (Negative); Color,Urine Yellow; Glucose,Urine (UA) Negative (Negative); Ketones,Urine Negative (Negative); Leukocyte Esterase,Urine Negative (Negative); Nitrite,Urine Negative (Negative); Protein,Urine Negative (Negative); Specific Gravity,Urine 1.022 (1.001-1.035); Urobilinogen,Urine <2.0 mg/dL (<2.0)
--- NOTE | 2021-02-28 14:12 | CT ---
EXAMINATION TYPE: CT abdomen pelvis w con DATE OF EXAM: 02/28/2021 COMPARISON: 05/14/2020 INDICATION: Abdominal pain, increasing in intensity since eating pizza 2 days ago DLP: 1981.7 mGycm, Automated exposure control for dose reduction was used. CONTRAST: 100 ml mL of Isovue 300. Study performed without Oral Contrast TECHNIQUE: Axial images were obtained from above the diaphragm to the pubic rami in the axial plane a t 5 mm thick sections. Reconstructed images are reviewed on the computer in the coronal plane. FINDINGS: Limited CT sections are obtained the lung bases. The lung bases are clear. CT ABDOMEN: Liver: There is moderate fatty infiltration of the liver. No discrete masses are evident. Spleen: Normal Pancreas: Normal Adrenal glands: The adrenal glands are normal. Gallbladder: Normal Kidneys: No masses are evident. No hydronephrosis is present. No cysts are present. Delayed images were obtained through the kidneys, which remain unremarkable. Aorta: Vascular calcification is within the aorta. Inferior vena cava: Normal. CT PELVIS: Thickening of the ascending colon wall. Correlate for colitis. No adjacent inflammatory changes are e vident. Some mild wall thickening may be in the rectosigmoid region. Remaining portions of the colon appear normal. No dilated loops of bowel are evident. No significant diverticulosis or acute divertic ulitis is evident. Study is performed without oral contrast limiting evaluation. Appendix: Normal as visualized. Urinary bladder: Normal. Genitourinary structures: Prostate appears unremarkable Osseous structures: No suspicious lytic or sclerotic lesions. IMPRESSIONS: 1. Thickening of the ascending colon with some possible thickening at the rectosigmoid region. Corre late for colitis. 2. Moderate fatty infiltration of the liver.
[2021-02-28] MEDS ORDERED: KETOROLAC 15 MG/ML 1 ML VIAL IVP STA (14:39)
[2021-02-28 14:54] VITALS: BP 131/78; PULSE 74; RESP 18
== END 2021-02-28 15:06 | disposition home or self-care (01) ==
LOC: EC 12:19
DX: K52.9 Noninfective gastroenteritis and colitis, unspecified (principal); J45.909 Unspecified asthma, uncomplicated; K21.9 Gastro-esophageal reflux disease without esophagitis; F31.9 Bipolar disorder, unspecified; F25.9 Schizoaffective disorder, unspecified; F17.200 Nicotine dependence, unspecified, uncomplicated; Z79.51 Long term (current) use of inhaled steroids
CPT/HCPCS: 36415; 80053; 82150; 83605; 83690; 85025; 85610; 85730; 81003; 74177; 99284; 96374; J1885; Q9967

== ENCOUNTER 2021-03-02 22:15 | Emergency (ER) | payer OTHER ==
[2021-03-02 22:30] VITALS: RESP 18; TEMP 97.7
[2021-03-02] MEDS ORDERED: KETOROLAC 15 MG/ML 1 ML VIAL IVP STA (22:31)
[2021-03-02] MEDS ORDERED: ONDANSETRON 4 MG/2 ML VIAL IVP STA (22:31)
[2021-03-02] MEDS ORDERED: MORPHINE SULFATE 4 MG/ML SYRINGE IV STA (22:31)
[2021-03-02] MEDS ORDERED: SODIUM CHLORIDE 0.9% 1,000 ML IV STA ×2 (22:31)
[2021-03-02] MEDS ORDERED: PANTOPRAZOLE 40 MG/10 ML VIAL IVP STA (22:31)
--- NOTE | 2021-03-02 22:32 | ED ---
Recheck HPI - General Chief Complaint: Recheck/Abnormal Lab/Rx Stated Complaint: Abd pain Time Seen by Provider: 03/02/21 22:31 Source: patient, family, RN notes reviewed, old records reviewed Mode of arrival: ambulatory Limitations: no limitations - History of Present Illness Initial Comments: This is a 31-year-old male to the ER for evaluation patient presents today for evaluation regards to who is itching comes in with abdominal pain right upper qu adrant pain diffuse pain. Patient states he just in the ER with his prior the pain has been persistent. Otherwise no travel show sick contacts no fevers no vomiting no blood in his stool. MD Complaint: other (Persistent pain) -: days(s) Returns Today for: persistent/worsening pain related to initial visit Symptoms Since Prior Visit: no new symptoms, worsening pain Associated Symptoms: nausea, abdominal pain Treatments Prior to Arrival: Given Pain Meds on - Related Data Home Medications Medication Instructions Recorded Confirmed Albuterol Sulfate [Proair Hfa] 1 - 2 puff INHALATION RT-Q6H PRN 05/14/2002/07 Omeprazole 40 mg PO DAILY 05/14/20 02/07/21 Fluticasone/Salmeterol [Advair 1 puff INHALATION RT-BID PRN 02/07/21 02/07/21 250-50 Diskus] Allergies Allergy/AdvReac Type Severity Reaction Status Date / Time cholecalciferol (vitamin D3) Allergy Unknown Verified 02/28/21 12:27 [From Vitamin D3] venom-honey bee Allergy Unknown Verified 02/28/21 12:27 [bee venom (honey bee)] Review of Systems ROS Statement: Those systems with pertinent positive or pertinent negative responses have been documented in the HPI. ROS Other: All systems not noted in ROS Statement are negative. Past Medical History Past Medical History: Asthma, GERD/Reflux Additional Past Medical History / Comment(s): BACK PAIN,IBS History of Any Multi-Drug Resistant Organisms: None Reported Past Surgical History: Ear Surgery, Tonsillectomy Additional Past Surgical History / Comment(s): NASAL SURGERY, right eye sty removed Past Psychological History: ADD/ADHD, Anxiety, Bipolar, Depression, Schizoaffective Disorder, Schizophrenia Smoking Status: Current every day smoker Past Alcohol Use History: Occasional Past Drug Use History: Prescription Drug Abuse General Exam Limitations: no limitations General appearance: alert, in no apparent distress Head exam: Present: atraumatic, normocephalic, normal inspection Eye exam: Present: normal appearance, PERRL, EOMI. Absent: scleral icterus, conjunctival injection, periorbital swelling ENT exam: Present: normal exam, mucous membranes moist Neck exam: Present: normal inspection. Absent: tenderness, meningismus, lymphadenopathy Respiratory exam: Present: normal lung sounds bilaterally. Absent: respiratory distress, wheezes, rales, rhonchi, stridor Cardiovascular Exam: Present: regular rate, normal rhythm, normal heart sounds. Absent: systolic murmur, diastolic murmur, rubs, gallop, clicks GI/Abdominal exam: Present: soft, normal bowel sounds. Absent: distended, tenderness, guarding, rebound, rigid Extremities exam: Present: normal inspection, full ROM, normal capillary refill. Absent: tenderness, pedal edema, joint swelling, calf tenderness Back exam: Present: normal inspection Neurological exam: Present: alert, oriented X3, CN II-XII intact Psychiatric exam: Present: normal affect, normal mood Skin exam: Present: warm, dry, intact, normal color. Absent: rash Course Vital Signs 03/02/21 03/03/21 22:25 01:07 Temperature 97.7 F Pulse Rate 78 75 Respiratory 18 18 Rate Blood Pressure 120/77 132/80 O2 Sat by Pulse 97 96 Oximetry - Reevaluation(s) Reevaluation #1: 03/03/21 03:35 Medical records are reviewed Reevaluation #2: 03/03/21 03:35 patient is relatively a symptomatically throughout ER stay Reevaluation #3: 03/03/21 03:35 Patient informed of results and questions answered Medical Decision Making - Medical Decision Making 31 female to the ER for evaluation with abdominal pain patient's pain is well- controlled currently is okay for discharge home CT is improved from prior - Lab Data Result diagrams: 03/02/21 23:15 03/02/21 23:15 Lab Results 03/02/21 03/02/21 03/02/21 Range/Units 23:15 23:15 23:15 WBC 12.9 H (3.8-10.6) k/uL RBC 4.70 (4.30-5.90) m/uL Hgb 15.0 (13.0-17.5) gm/dL Hct 44.1 (39.0-53.0) % MCV 94.0 (80.0-100.0) fL MCH 32.0 (25.0-35.0) pg MCHC 34.0 (31.0-37.0) g/dL RDW 13.0 (11.5-15.5) % Plt Count 277 (150-450) k/uL MPV 7.4 Neutrophils % 65 % Lymphocytes % 25 % Monocytes % 5 % Eosinophils % 4 % Basophils % 1 % Neutrophils # 8.4 H (1.3-7.7) k/uL Lymphocytes # 3.2 (1.0-4.8) k/uL Monocytes # 0.6 (0-1.0) k/uL Eosinophils # 0.5 (0-0.7) k/uL Basophils # 0.1 (0-0.2) k/uL Sodium 141 (137-145) mmol/L Potassium 5.0 (3.5-5.1) mmol/L Chloride 108 H (98-107) mmol/L Carbon Dioxide 24 (22-30) mmol/L Anion Gap 9 mmol/L BUN 13 (9-20) mg/dL Creatinine 0.99 (0.66-1.25) mg/dL Est GFR (CKD-EPI)AfAm >90 (>60 ml/min/1.73 sqM) Est GFR (CKD-EPI)NonAf >90 (>60 ml/min/1.73 sqM) Glucose 115 H (74-99) mg/dL Plasma Lactic Acid Raji 1.2 (0.7-2.0) mmol/L Calcium 9.4 (8.4-10.2) mg/dL Total Bilirubin 0.6 (0.2-1.3) mg/dL AST 70 H (17-59) U/L ALT 103 H (4-49) U/L Alkaline Phosphatase 58 (38-126) U/L Creatine Kinase 425 H (55-170) U/L Total Protein 6.8 (6.3-8.2) g/dL Albumin 4.4 (3.5-5.0) g/dL Amylase 44 (30-110) U/L Lipase 105 (23-300) U/L - Radiology Data Radiology results: report reviewed (CT abdomen and pelvis negative for acute disease colitis is resolved), image reviewed Disposition Clinical Impression: Abdominal pain, Colitis Disposition: HOME SELF-CARE Condition: Good Instructions (If sedation given, give patient instructions): Abdominal Pain (ED), Colitis (ED) Is patient prescribed a controlled substance at d/c from ED?: No Referrals: José Manuel Cornejo [Primary Care Provider] - 1-2 days
[2021-03-02 23:25] LABS: Basophils # (A) 0.1 k/uL (0-0.2); Basophils % (A) 1 %; Eosinophils # (A) 0.5 k/uL (0-0.7); Eosinophils % (A) 4 %; HCT 44.1 % (39.0-53.0); Lymphocytes # (A) 3.2 k/uL (1.0-4.8); Lymphocytes % (A) 25 %; Mean Platelet Volume 7.4; Monocytes # (A) 0.6 k/uL (0-1.0); Monocytes % (A) 5 %; Neutrophils # (A) 8.4 k/uL (1.3-7.7); Neutrophils % (A) 65 %; Platelet Count 277 k/uL (150-450); WBC 12.9 k/uL (3.8-10.6)
[2021-03-02 23:35] LABS: ALT 103 U/L (4-49); AST 70 U/L (17-59); African American GFR (CKD) >90 (>60 ml/min/1.73 sqM); Albumin 4.4 g/dL (3.5-5.0); Alkaline Phosphatase 58 U/L (38-126); Amylase 44 U/L (30-110); Anion Gap 9 mmol/L; Blood Urea Nitrogen 13 mg/dL (9-20); Calcium 9.4 mg/dL (8.4-10.2); Carbon Dioxide 24 mmol/L (22-30); Chloride 108 mmol/L (98-107); Creatine Kinase 425 U/L (55-170); Glucose 115 mg/dL (74-99); Lipase 105 U/L (23-300); Non-African American GFR(CKD) >90 (>60 ml/min/1.73 sqM); Sodium 141 mmol/L (137-145); Total Bilirubin 0.6 mg/dL (0.2-1.3); Total Protein 6.8 g/dL (6.3-8.2)
--- NOTE | 2021-03-03 00:03 | CT ---
EXAMINATION TYPE: CT abdomen pelvis w con DATE OF EXAM: 03/02/2021 COMPARISON: 02/28/2021 HISTORY: pain. CT DLP: 1946 mGycm Automated exposure control for dose reduction was used. CONTRAST: Performed with IV Contrast, patient injected with 100ml mL of Isovue 300. Images obtained from the diaphragm to the floor the pelvis with IV contrast. Lung bases are clear. There is no pleural effusion. There is diffuse fatty infiltration of the liver. Heart size is normal. There is no pericardial effusion. Spleen stomach pancreas gallbladder appear i ntact. The bile ducts are not dilated. There is no adrenal mass. Kidneys show satisfactory contrast opacification. There is no hydronephrosi s. The ureters are not dilated. Delayed images show normal renal excretion. There is no retroperitone al adenopathy. Appendix is posterior and appears normal. Bladder distends smoothly. There is no inguinal hernia. There is no free fluid in the pelvis. There i s no evidence of pelvic mass. There is no mesenteric edema. There is no ascites or free air. There is no sign of a bowel obstructio n. There is no intestinal wall thickening. Lumbar vertebra have normal alignment. There is no compression fracture. The posterior elements are i ntact. The bony pelvis is intact. Hip joints are intact. There is no hip dysplasia. IMPRESSION: There is some fatty infiltration of the liver unchanged. Normal appendix. No sign of acute abdomen an d pelvis. No evidence of colitis. No adverse change compared to old exam.
[2021-03-03] MEDS ORDERED: Acetaminophen-Codeine 300-30mg TAB PO STA (00:24)
[2021-03-03] MEDS ORDERED: ACET/COD 300 MG/30 MG STARTER PACK 6 TAB BTL PO STA (00:24)
[2021-03-03] MEDS ORDERED: ONDANSETRON 4 MG ODT STARTER PACK 2 TAB BTL PO STA (00:24)
[2021-03-03 01:08] VITALS: BP 132/80; PULSE 75
== END 2021-03-03 01:30 | disposition home or self-care (01) ==
LOC: EC 22:15
DX: K52.9 Noninfective gastroenteritis and colitis, unspecified (principal); J45.909 Unspecified asthma, uncomplicated; K21.9 Gastro-esophageal reflux disease without esophagitis; F17.200 Nicotine dependence, unspecified, uncomplicated; Z79.51 Long term (current) use of inhaled steroids; Z79.899 Other long term (current) drug therapy
CPT/HCPCS: 36415; 80053; 82150; 82550; 83605; 83690; 85025; 74177; 96374; 96375 ×3; 96361 ×2; 99284; J2270; J2405; J1885; S0119; C9113; Q9967

== ENCOUNTER 2021-03-06 04:41 | Emergency (ER) | payer OTHER ==
[2021-03-06 04:52] VITALS: RESP 20
[2021-03-06] MEDS ORDERED: SODIUM CHLORIDE 0.9% 1,000 ML IV STA (05:04)
[2021-03-06] MEDS ORDERED: ONDANSETRON 4 MG/2 ML VIAL IVP STA (05:04)
[2021-03-06] MEDS ORDERED: KETOROLAC 15 MG/ML 1 ML VIAL IVP STA (05:04)
--- NOTE | 2021-03-06 05:13 | ED ---
Abdominal Pain HPI - General Chief Complaint: Abdominal Pain Stated Complaint: R Flank Pain Time Seen by Provider: 03/06/21 04:46 Source: patient, RN notes reviewed, old records reviewed Mode of arrival: ambulatory Limitations: no limitations - History of Present Illness Initial Comments: This is a 31-year-old male DF for evaluation presents today for evaluation of severe abdominal pain. Right-sided flank pain right-sided abdominal pain. His been going on and off for a few weeks now. Patient has no significant medical history of similar pain. Patient has no fevers mild myalgias severe nausea and vomiting. No problems with bowel movements or urination MD Complaint: abdominal pain, flank pain -: week(s) Location: RLQ, R flank Radiation: RLQ, R flank Migration to: no migration Severity: moderate Severity scale (1-10): 4 Quality: cramping, aching Consistency: constant, intermittent Improves With: nothing Worsens With: nothing Associated Symptoms: nausea - Related Data Home Medications Medication Instructions Recorded Confirmed Albuterol Sulfate [Proair Hfa] 1 - 2 puff INHALATION RT-Q6H PRN 05/14/20 Omeprazole 40 mg PO DAILY 05/14/20 02/07/21 Fluticasone/Salmeterol [Advair 1 puff INHALATION RT-BID PRN 02/07/21 02/07/21 250-50 Diskus] Allergies Allergy/AdvReac Type Severity Reaction Status Date / Time cholecalciferol (vitamin D3) Allergy Unknown Verified 03/06/21 04:52 [From Vitamin D3] venom-honey bee Allergy Unknown Verified 03/06/21 04:52 [bee venom (honey bee)] Review of Systems ROS Statement: Those systems with pertinent positive or pertinent negative responses have been documented in the HPI. ROS Other: All systems not noted in ROS Statement are negative. Past Medical History Past Medical History: Asthma, GERD/Reflux Additional Past Medical History / Comment(s): BACK PAIN,IBS History of Any Multi-Drug Resistant Organisms: None Reported Past Surgical History: Ear Surgery, Tonsillectomy Additional Past Surgical History / Comment(s): NASAL SURGERY, right eye sty removed Past Psychological History: ADD/ADHD, Anxiety, Bipolar, Depression, Schizoaffective Disorder, Schizophrenia Smoking Status: Current every day smoker Past Alcohol Use History: Occasional Past Drug Use History: Prescription Drug Abuse General Exam Limitations: no limitations General appearance: alert, in no apparent distress Head exam: Present: atraumatic, normocephalic, normal inspection Eye exam: Present: normal appearance, PERRL, EOMI. Absent: scleral icterus, conjunctival injection, periorbital swelling ENT exam: Present: normal exam, mucous membranes moist Neck exam: Present: normal inspection. Absent: tenderness, meningismus, lymphadenopathy Respiratory exam: Present: normal lung sounds bilaterally. Absent: respiratory distress, wheezes, rales, rhonchi, stridor Cardiovascular Exam: Present: normal rhythm, tachycardia, normal heart sounds. Absent: systolic murmur, diastolic murmur, rubs, gallop, clicks GI/Abdominal exam: Present: soft, normal bowel sounds. Absent: distended, tenderness, guarding, rebound, rigid Extremities exam: Present: normal inspection, full ROM, normal capillary refill. Absent: tenderness, pedal edema, joint swelling, calf tenderness Back exam: Present: normal inspection Neurological exam: Present: alert, oriented X3, CN II-XII intact Psychiatric exam: Present: normal affect, normal mood Skin exam: Present: warm, dry, intact, normal color. Absent: rash Course Vital Signs 03/06/21 04:49 Temperature 98.1 F Pulse Rate 111 H Respiratory 20 Rate Blood Pressure 123/78 O2 Sat by Pulse 96 Oximetry - Reevaluation(s) Reevaluation #1: 03/06/21 05:13 Medical record is reviewed Reevaluation #2: 03/06/21 06:05 Patient's symptoms are significantly improved Medical Decision Making - Medical Decision Making 31 male with recurrent abdominal pain which she feels is colitis pain. Lab values are normal patient sleeping throughout ER visit. Patient can be discharged home - Lab Data Result diagrams: 03/06/21 05:20 Lab Results 03/06/21 03/06/21 Range/Units 05:20 05:20 WBC 12.1 H (3.8-10.6) k/uL RBC 4.95 (4.30-5.90) m/uL Hgb 16.1 (13.0-17.5) gm/dL Hct 47.9 (39.0-53.0) % MCV 96.7 (80.0-100.0) fL MCH 32.5 (25.0-35.0) pg MCHC 33.6 (31.0-37.0) g/dL RDW 13.0 (11.5-15.5) % Plt Count 342 (150-450) k/uL MPV 7.7 Neutrophils % 59 % Lymphocytes % 30 % Monocytes % 6 % Eosinophils % 3 % Basophils % 1 % Neutrophils # 7.1 (1.3-7.7) k/uL Lymphocytes # 3.7 (1.0-4.8) k/uL Monocytes # 0.7 (0-1.0) k/uL Eosinophils # 0.3 (0-0.7) k/uL Basophils # 0.1 (0-0.2) k/uL Plasma Lactic Acid Raji 1.6 (0.7-2.0) mmol/L Disposition Clinical Impression: Abdominal pain Disposition: HOME SELF-CARE Condition: Good Instructions (If sedation given, give patient instructions): Abdominal Pain (ED) Is patient prescribed a controlled substance at d/c from ED?: No Referrals: José Manuel Cornejo [Primary Care Provider] - 1-2 days
[2021-03-06 05:34] LABS: Basophils # (A) 0.1 k/uL (0-0.2); Basophils % (A) 1 %; Eosinophils # (A) 0.3 k/uL (0-0.7); Eosinophils % (A) 3 %; HCT 47.9 % (39.0-53.0); HGB 16.1 gm/dL (13.0-17.5); Lymphocytes # (A) 3.7 k/uL (1.0-4.8); Lymphocytes % (A) 30 %; MCH 32.5 pg (25.0-35.0); MCHC 33.6 g/dL (31.0-37.0); MCV 96.7 fL (80.0-100.0); Mean Platelet Volume 7.7; Monocytes # (A) 0.7 k/uL (0-1.0); Monocytes % (A) 6 %; Neutrophils # (A) 7.1 k/uL (1.3-7.7); Neutrophils % (A) 59 %; Platelet Count 342 k/uL (150-450); RBC 4.95 m/uL (4.30-5.90); WBC 12.1 k/uL (3.8-10.6)
[2021-03-06 05:44] LABS: ALT 96 U/L (4-49); AST 58 U/L (17-59); African American GFR (CKD) >90 (>60 ml/min/1.73 sqM); Albumin 4.7 g/dL (3.5-5.0); Alkaline Phosphatase 77 U/L (38-126); Amylase 43 U/L (30-110); Anion Gap 11 mmol/L; Blood Urea Nitrogen 12 mg/dL (9-20); Calcium 9.6 mg/dL (8.4-10.2); Carbon Dioxide 27 mmol/L (22-30); Chloride 105 mmol/L (98-107); Glucose 125 mg/dL (74-99); Lipase 96 U/L (23-300); Non-African American GFR(CKD) 85 (>60 ml/min/1.73 sqM); Potassium 4.5 mmol/L (3.5-5.1); Sodium 143 mmol/L (137-145); Total Bilirubin 0.2 mg/dL (0.2-1.3); Total Protein 7.1 g/dL (6.3-8.2)
[2021-03-06 06:23] LABS: Alcohol 123 mg/dL
[2021-03-06 06:39] VITALS: BP 123/80; PULSE 96; TEMP 98
== END 2021-03-06 06:34 | disposition home or self-care (01) ==
LOC: EC 04:41
DX: R10.31 Right lower quadrant pain (principal); R11.0 Nausea; J45.909 Unspecified asthma, uncomplicated; K21.9 Gastro-esophageal reflux disease without esophagitis; F25.9 Schizoaffective disorder, unspecified; F31.9 Bipolar disorder, unspecified; F17.200 Nicotine dependence, unspecified, uncomplicated; Z79.51 Long term (current) use of inhaled steroids
CPT/HCPCS: 80053; 82150; 83605; 83690; 85025; 99284; 96374; 96375; 96361; G0480; J2405; J1885; 80320; 99285

== ENCOUNTER 2021-07-08 01:39 | Emergency (ER) | payer OTHER ==
[2021-07-08 01:59] VITALS: TEMP 97.4
[2021-07-08] MEDS ORDERED: SODIUM CHLORIDE 0.9% 1,000 ML IV STA (02:02)
[2021-07-08] MEDS ORDERED: ONDANSETRON 4 MG/2 ML VIAL IVP STA (02:02)
[2021-07-08] MEDS ORDERED: DEXAMETHASONE SOD PHOSPHATE 10 MG/ML 1 ML VIAL IVP STA (02:02)
--- NOTE | 2021-07-08 02:26 | XR ---
EXAMINATION TYPE: XR chest 2V DATE OF EXAM: 07/08/2021 COMPARISON: 12/21/2019 HISTORY: Cough TECHNIQUE: FINDINGS: Heart and mediastinum are normal. Lungs are clear. Diaphragm is normal. Bony thorax appears normal. IMPRESSION: Normal chest. No change.
--- NOTE | 2021-07-08 02:55 | ED ---
Nausea/Vomiting/Diarrhea HPI - General Chief complaint: Nausea/Vomiting/Diarrhea Stated complaint: cough, abdominal pain, nausea Time Seen by Provider: 07/08/21 02:01 Source: patient, RN notes reviewed Mode of arrival: ambulatory Limitations: no limitations - History of Present Illness Initial comments: patient is a 31-year-old male that presents to the emergency department complaining of nausea vomiting diarrhea cough and chest congestion for the past 2 days. Patient notes that he has had no sick contacts or exposure to Covid that he knows of.e asthmapatient denied any alleviating or aggravating factors at this time. He denied any chest pain headache constipation fever fatigue chills. - Related Data Home Medications Medication Instructions Recorded Confirmed Albuterol Sulfate [Proair Hfa] 1 - 2 puff INHALATION RT-Q6H PRN 05/14/20 02/07/21 Omeprazole 40 mg PO DAILY 05/14/20 02/07/21 Fluticasone/Salmeterol [Advair 1 puff INHALATION RT-BID PRN 02/07/21 02/07/21 250-50 Diskus] Allergies Allergy/AdvReac Type Severity Reaction Status Date / Time cholecalciferol (vitamin D3) Allergy Unknown Verified 07/08/21 01:55 [From Vitamin D3] venom-honey bee Allergy Unknown Verified 07/08/21 01:55 [bee venom (honey bee)] Review of Systems ROS Statement: Those systems with pertinent positive or pertinent negative responses have been documented in the HPI. ROS Other: All systems not noted in ROS Statement are negative. Past Medical History Past Medical History: Asthma, GERD/Reflux Additional Past Medical History / Comment(s): BACK PAIN,IBS History of Any Multi-Drug Resistant Organisms: None Reported Past Surgical History: Ear Surgery, Tonsillectomy Additional Past Surgical History / Comment(s): NASAL SURGERY, right eye sty removed Past Psychological History: ADD/ADHD, Anxiety, Bipolar, Depression, Schizoaffective Disorder, Schizophrenia Smoking Status: Former smoker Past Alcohol Use History: Occasional Past Drug Use History: None Reported, Prescription Drug Abuse General Exam Limitations: no limitations General appearance: alert, in no apparent distress, obese Head exam: Present: atraumatic, normocephalic, normal inspection Eye exam: Present: normal appearance, PERRL, EOMI. Absent: scleral icterus, conjunctival injection, periorbital swelling ENT exam: Present: normal exam, mucous membranes moist Neck exam: Present: normal inspection Respiratory exam: Present: normal lung sounds bilaterally. Absent: respiratory distress, wheezes, rales, rhonchi, stridor Cardiovascular Exam: Present: regular rate, normal rhythm, normal heart sounds. Absent: systolic murmur, diastolic murmur, rubs, gallop, clicks GI/Abdominal exam: Present: soft, tenderness (generalized), normal bowel sounds. Absent: distended, guarding, rebound, rigid Extremities exam: Present: normal inspection, full ROM, normal capillary refill. Absent: tenderness, pedal edema, joint swelling, calf tenderness Neurological exam: Present: alert, oriented X3 Psychiatric exam: Present: normal affect, normal mood Skin exam: Present: warm, dry, intact, normal color. Absent: rash Course Vital Signs 07/08/21 01:55 Temperature 97.4 F L Pulse Rate 90 Respiratory 18 Rate Blood Pressure 110/68 O2 Sat by Pulse 95 Oximetry Medical Decision Making - Medical Decision Making 31-year-old male complaining of nausea vomiting diarrhea and cough with chest congestion for the past 2 days. Labs, chest x-ray, 1 L normal saline, 10 mg of Decadron, 4 mg of Zofran ordered. labs unremarkable. Covid negative. Patient is requesting be discharged home with this time is an hour drive home. Patient was informed that he most likely has a viral upper respiratory tract infection. case discussed with Dr. Willis, patient discharge home - Lab Data Result diagrams: 07/08/21 02:41 Lab Results 07/08/21 07/08/21 Range/Units 02:41 02:41 WBC 12.5 H (3.8-10.6) k/uL RBC 4.67 (4.30-5.90) m/uL Hgb 15.1 (13.0-17.5) gm/dL Hct 44.2 (39.0-53.0) % MCV 94.7 (80.0-100.0) fL MCH 32.4 (25.0-35.0) pg MCHC 34.2 (31.0-37.0) g/dL RDW 12.6 (11.5-15.5) % Plt Count 247 (150-450) k/uL MPV 7.4 Neutrophils % 58 % Lymphocytes % 31 % Monocytes % 6 % Eosinophils % 3 % Basophils % 1 % Neutrophils # 7.3 (1.3-7.7) k/uL Lymphocytes # 3.9 (1.0-4.8) k/uL Monocytes # 0.8 (0-1.0) k/uL Eosinophils # 0.3 (0-0.7) k/uL Basophils # 0.1 (0-0.2) k/uL Coronavirus (PCR) Not Detected (Not Detectd) Disposition Clinical Impression: Upper respiratory tract infection, Dehydration, Nausea & vomiting Disposition: HOME SELF-CARE Condition: Stable Instructions (If sedation given, give patient instructions): Acute Nausea and Vomiting (ED) Additional Instructions: Please return to the Emergency Department if symptoms worsen or any other concerns. Follow-up with primary care 1-2 days. Take Zofran as prescribed. Take Tylenol as needed for aches and pains. Is patient prescribed a controlled substance at d/c from ED?: No Referrals: None,Stated [Primary Care Provider] - 1-2 days Time of Disposition: 03:20
[2021-07-08 02:57] LABS: Basophils # (A) 0.1 k/uL (0-0.2); Basophils % (A) 1 %; Eosinophils # (A) 0.3 k/uL (0-0.7); Eosinophils % (A) 3 %; HCT 44.2 % (39.0-53.0); HGB 15.1 gm/dL (13.0-17.5); Lymphocytes # (A) 3.9 k/uL (1.0-4.8); Lymphocytes % (A) 31 %; MCH 32.4 pg (25.0-35.0); MCHC 34.2 g/dL (31.0-37.0); MCV 94.7 fL (80.0-100.0); Mean Platelet Volume 7.4; Monocytes # (A) 0.8 k/uL (0-1.0); Monocytes % (A) 6 %; Neutrophils # (A) 7.3 k/uL (1.3-7.7); Neutrophils % (A) 58 %; Platelet Count 247 k/uL (150-450); RBC 4.67 m/uL (4.30-5.90); RDW 12.6 % (11.5-15.5); WBC 12.5 k/uL (3.8-10.6)
[2021-07-08] MEDS ORDERED: ONDANSETRON 4 MG ODT STARTER PACK 2 TAB BTL PO STA (03:15)
[2021-07-08 03:18] LABS: ALT 110 U/L (4-49); AST 64 U/L (17-59); African American GFR (CKD) >90 (>60 ml/min/1.73 sqM); Albumin 3.9 g/dL (3.5-5.0); Alkaline Phosphatase 66 U/L (38-126); Anion Gap 7 mmol/L; Blood Urea Nitrogen 14 mg/dL (9-20); Calcium 9.3 mg/dL (8.4-10.2); Carbon Dioxide 24 mmol/L (22-30); Chloride 106 mmol/L (98-107); Glucose 91 mg/dL (74-99); Non-African American GFR(CKD) >90 (>60 ml/min/1.73 sqM); Sodium 137 mmol/L (137-145); Total Bilirubin 0.4 mg/dL (0.2-1.3); Total Protein 6.5 g/dL (6.3-8.2)
[2021-07-08 03:23] LABS: Potassium 4.4 mmol/L (3.5-5.1)
[2021-07-08 03:35] VITALS: BP 126/84; PULSE 91; RESP 20
== END 2021-07-08 03:34 | disposition home or self-care (01) ==
LOC: EC 01:39
DX: J06.9 Acute upper respiratory infection, unspecified (principal); E86.0 Dehydration; R11.2 Nausea with vomiting, unspecified; R19.7 Diarrhea, unspecified; J45.909 Unspecified asthma, uncomplicated; K21.9 Gastro-esophageal reflux disease without esophagitis; Z87.891 Personal history of nicotine dependence; Z20.822 Contact with and (suspected) exposure to COVID-19; Z88.8 Allergy status to other drugs, medicaments and biological substances; Z91.030 Bee allergy status; Z79.899 Other long term (current) drug therapy
CPT/HCPCS: 36415; 80053; 85025; 87635; 71046; 99284; 96374; 96375; J1100; J2405; S0119